=== PATIENT | female | born 1980 | race Caucasian/White ===

== ENCOUNTER 2017-09-07 08:51 | Emergency (ER) | payer OTHER ==
--- NOTE | 2017-09-07 09:19 | ER ---
Nurse's Notes [facility] Name: Yoli Duffy Age: 37 yrs Sex: Female : 1980 Arrival Date: 09/07/2017 Time: 08:54 Bed 21 Private MD: Rigo Allison R Diagnosis: Acute pharyngitis Presentation: 09/07 09:09 Presenting complaint: Patient states: pain to L ear and L tonsil that began this ss morning. Denies fever. Transition of care: patient was not received from another setting of care. Onset of symptoms was September 07, 2017. Initial Sepsis Screen: Does the patient meet any 2 criteria? No. Patient's initial sepsis screen is negative. Does the patient have a suspected source of infection? No. Patient's initial sepsis screen is negative. Care prior to arrival: None. 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 - Social history:: Smoking status: Patient/guardian denies using tobacco. Screenin:00 Abuse screen: Denies threats or abuse. Nutritional screening: No deficits noted. rb1 Tuberculosis screening: No symptoms or risk factors identified. Fall Risk None identified. Assessment: 09:00 General: Appears uncomfortable, Behavior is calm, cooperative. General: Denies fever. rb1 Pain: Complains of pain in throat and left ear Pain currently is 5 out of 10 on a pain scale. Pain began this morning. Neuro: Level of Consciousness is awake, alert, obeys commands, Oriented to person, place, time, situation. Cardiovascular: Capillary refill < 3 seconds is brisk in bilateral fingers. Respiratory: Airway is patent Respiratory effort is even, unlabored, Respiratory pattern is regular, symmetrical. GI: No signs and/or symptoms were reported involving the gastrointestinal system. : No signs and/or symptoms were reported regarding the genitourinary system. EENT: Throat is reddened. Derm: Skin is pink, warm \T\ dry. Vital Signs: 09:10 BP 110 / 72; Pulse 78; Resp 14; Temp 98.1(TE); Pulse Ox 98% on R/A; Height 5 ft. 3 in. ss (160.02 cm); Pain 5/10; ED Course: 08:54 Patient arrived in ED. as 08:55 Rigo Allison MD is Private Physician. as 09:00 Niki Aguilar, RN is Primary Nurse. rb1 09:00 Luis Palmer MD is Attending Physician. [facility] 09:00 Patient has correct armband on for positive identification. Bed in low position. Call rb1 light in reach. Side rails up X 1. Pulse ox on. NIBP on. 09:00 Arm band placed on right wrist. rb1 09: Triage completed. 09:19 Rigo Allison MD is Referral Physician. [facility] 09:27 No provider procedures requiring assistance completed. Patient did not have IV access rb1 during this emergency room visit. Administered Medications: No medications were administered Outcome: :19 Discharge ordered by . [facility] :27 Discharged to home ambulatory. rb1 09:27 Condition: stable 09:27 Discharge instructions given to patient, Instructed on discharge instructions, follow up and referral plans. medication usage, Demonstrated understanding of instructions, follow-up care, medications, Prescriptions given X 2. 09:28 Patient left the ED. rb1 Signatures: Luis Palmer MD MD cha Martinez, Amelia as Smirch, Shelby, RN RN Niki Aguilar, TOSHA RN [facility]
--- NOTE | 2017-09-07 09:19 | EDPHYS ---
Physician Documentation [facility] Name: Yoli Duffy Age: 37 yrs Sex: Female : 1980 Arrival Date: 09/07/2017 Time: 08:54 Bed 21 Private MD: Rigo Allison R ED Physician Luis Palmer HPI: 09/07 09:15 This 37 yrs old Female presents to ER via Ambulatory with complaints of paloma Swollen Glands, Ear Pain. 09:15 This 37 yrs old Female presents to ER via Ambulatory with complaints of paloma Swollen Glands, Ear Pain. 09:15 The patient presents with pain. 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 - Social history:: Smoking status: Patient/guardian denies using tobacco. ROS: 09:16 Constitutional: Negative for fever, chills, and weight loss, Eyes: Negative for injury, paloma pain, redness, and discharge, Neck: Negative for injury, pain, and swelling, Cardiovascular: Negative for chest pain, palpitations, and edema, Respiratory: Negative for shortness of breath, cough, wheezing, and pleuritic chest pain, Abdomen/GI: Negative for abdominal pain, nausea, vomiting, diarrhea, and constipation, Back: Negative for injury and pain, : Negative for injury, bleeding, discharge, and swelling, MS/Extremity: Negative for injury and deformity, Skin: Negative for injury, rash, and discoloration, Neuro: Negative for headache, weakness, numbness, tingling, and seizure, Psych: Negative for depression, anxiety, suicide ideation, homicidal ideation, and hallucinations, Allergy/Immunology: Negative for hives, rash, and allergies, Endocrine: Negative for neck swelling, polydipsia, polyuria, polyphagia, and marked weight changes, Hematologic/Lymphatic: Negative for swollen nodes, abnormal bleeding, and unusual bruising. 09:16 ENT: Positive for difficulty swallowing, ear pain, rhinorrhea, sore throat. Exam: 09:16 Constitutional: This is a well developed, well nourished patient who is awake, alert, paloma and in no acute distress. Head/Face: Normocephalic, atraumatic. Eyes: Pupils equal round and reactive to light, extra-ocular motions intact. Lids and lashes normal. Conjunctiva and sclera are non-icteric and not injected. Cornea within normal limits. Periorbital areas with no swelling, redness, or edema. Neck: Trachea midline, no thyromegaly or masses palpated, and no cervical lymphadenopathy. Supple, full range of motion without nuchal rigidity, or vertebral point tenderness. No Meningismus. Chest/axilla: Normal chest wall appearance and motion. Nontender with no deformity. No lesions are appreciated. Cardiovascular: Regular rate and rhythm with a normal S1 and S2. No gallops, murmurs, or rubs. Normal PMI, no JVD. No pulse deficits. Respiratory: Lungs have equal breath sounds bilaterally, clear to auscultation and percussion. No rales, rhonchi or wheezes noted. No increased work of breathing, no retractions or nasal flaring. Abdomen/GI: Soft, non-tender, with normal bowel sounds. No distension or tympany. No guarding or rebound. No evidence of tenderness throughout. Back: No spinal tenderness. No costovertebral tenderness. Full range of motion. Skin: Warm, dry with normal turgor. Normal color with no rashes, no lesions, and no evidence of cellulitis. MS/ Extremity: Pulses equal, no cyanosis. Neurovascular intact. Full, normal range of motion. Neuro: Awake and alert, GCS 15, oriented to person, place, time, and situation. Cranial nerves II-XII grossly intact. Motor strength 5/5 in all extremities. Sensory grossly intact. Cerebellar exam normal. Normal gait. 09:16 ENT: Posterior pharynx: Tonsils: with erythema, Uvula: normal, swelling, is not appreciated, erythema, that is mild, exudate, is not appreciated, peritonsillar mass, is not appreciated. Vital Signs: 09:10 BP 110 / 72; Pulse 78; Resp 14; Temp 98.1(TE); Pulse Ox 98% on R/A; Height 5 ft. 3 in. ss (160.02 cm); Pain 5/10; MDM: 09:00 Patient medically screened. [facility] 09:18 Data reviewed: vital signs, nurses notes. [facility] Administered Medications: No medications were administered Disposition: 09/07/17 09:19 Discharged to Home. Impression: Acute pharyngitis. - Condition is Stable. - Discharge Instructions: Pharyngitis, Pharyngitis, [id number], Sore Throat, [id number]. - Prescriptions for Augmentin 875- 125 mg Oral Tablet - take 1 tablet by ORAL route every 12 hours for 10 days; 20 tablet. Stephanie- D 12 Hour 60-120 mg Oral Tablet Sustained Release 12 hr - take 1 tablet by ORAL route every 12 hours As needed; 20 tablet. - Medication Reconciliation Form, Thank You Letter, Antibiotic Education, Prescription Opioid Use form. - Follow up: Rigo Allison MD; When: 2 - 3 days; Reason: Recheck today's complaints, Continuance of care, Re-evaluation by your physician. - Problem is new. - Symptoms have improved. Signatures: Luis Palmer MD MD cha Smirch, Shelby, RN RN Niki Aguilar, RN RN rb1
[2017-09-07 09:33] VITALS: BP 110/72; TEMP 98.1; O2SAT 98
== END 2017-09-07 09:28 | disposition home or self-care (01) ==
LOC: ER 08:51
DX: J02.9 Acute pharyngitis, unspecified (principal)
CPT/HCPCS: 99283

== ENCOUNTER 2017-09-08 11:47 | Emergency (ER) | payer SELFPAY ==
--- NOTE | 2017-09-08 12:23 | ER ---
Nurse's Notes [facility] Name: Yoli Duffy Age: 37 yrs Sex: Female : 1980 Arrival Date: 09/08/2017 Time: 11:51 Bed Waiting Private MD: Rigo Allison R Diagnosis: Presentation: 09/08 11:57 Presenting complaint: Patient states: having pain under ribs radiating to back, started iw 20 minutes ago, denies n/v/d, has had similar pain in past, dx of pleurisy, rates pain 6/10, intermittent. 11:57 Transition of care: patient was not received from another setting of care. Onset of iw symptoms was September 08, 2017. Initial Sepsis Screen: Does the patient meet any 2 criteria? No. Patient's initial sepsis screen is negative. Does the patient have a suspected source of infection? No. Patient's initial sepsis screen is negative. Care prior to arrival: None. 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 - Social history:: Smoking status: Patient/guardian denies using tobacco. Assessment: 12:19 Reassessment: pt not in lobby when called to room. iw Vital Signs: 11:59 BP 114 / 86; Pulse 98; Resp 18 S; Temp 98.4; Pulse Ox 99% on R/A; Weight 66.22 kg; iw Height 5 ft. 3 in. (160.02 cm); Pain 6/10; 11:59 Body Mass Index 25.86 (66.22 kg, 160.02 cm) iw ED Course: 11:51 Patient arrived in ED. mr 11:51 Rigo Allison MD is Private Physician. mr 11:59 Triage completed. iw 11:59 Arm band placed on. iw 12:17 Tara Edwards, RN is Primary Nurse. ph Administered Medications: No medications were administered Outcome: 12:23 Patient left the ED. pt Signatures: Gretchen Garza RN RN pt Chante English mr Dianelys Aburto RN RN iw Tara Edwards RN RN ph Corrections: (The following items were deleted from the chart) 11:59 11:57 Presenting complaint: Patient states: having pain under ribs radiating to back, iw started 20 minutes ago, iw
[2017-09-08 12:56] VITALS: BP 114/86; TEMP 98.4; O2SAT 99
== END 2017-09-08 12:23 | disposition left against medical advice (07) ==
LOC: ER 11:47
DX: Z02.9 Encounter for administrative examinations, unspecified (principal)
CPT/HCPCS: 99281

== ENCOUNTER 2018-05-21 11:55 | Emergency (ER) | payer SELFPAY ==
[2018-05-21] MEDS ORDERED: ONDANSETRON 4 MG/2 ML VIAL ONE (12:33)
--- OUTSIDE RECORDS SUMMARY | 2018-05-21 12:41 | XMS REPORT | Continuity of Care Document ---
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 thoracic spine to the pelvis. Compression fracture through the superior endplate of L1 with 1.3 mm anterior displacement of the fracture fragment and less than 10% vertebral body height loss. No acute soft tissue abnormality is identified. IMPRESSION: Compression fracture through the superior endplate of L1, mildly displaced anteriorly with less than 10% vertebral body height loss. (AO spine classification L1:A1). ELECTROLYTE CO2 22 meq/L 24 - 32 09/02 S /2016 [place] ELECTROLYTE Chloride Lvl 107 meq/L 95 - 109 09/02 S [place] ELECTROLYTE eGFR See Note 1 09/02 Result Comment: Tests performed on i- stat on whole blood. 09/02/2016 01:42 cg [place] (09/02/16 1:24 AM) ELECTROLYTE AGAP 20.0 meq/L 10.0 - 09/02 S 20.0 [place] ELECTROLYTE Ca Ion WB 1.25 1.05 - 09/02 S mMol/L 1.25 [place] ELECTROLYTE Hct see CBC 36.0 - 09/02 S 48.0 [place] ELECTROLYTE Hgb see CBC 12.0 - 09/02 S 16.0 [place] ELECTROLYTE Creatinine 0.9 mg/dL 0.5 - 1.4 09/02 S Lv [place] ELECTROLYTE BUN 10 mg/dL 7 - 22 09/02 S /2016 [place] ELECTROLYTE Sodium Lvl 144 meq/L 135 - 145 09/02 S [place] ELECTROLYTE Glucose Lvl 101 mg/dL 70 - 99 09/02 S [place] ELECTROLYTE Potassium 3.6 meq/L 3.5 - 5.1 09/02 S Lvl [place] HEMATOLOGY Basophils # 0.1 K/CMM 0.0 - 0.2 09/02 /2016 [place] HEMATOLOGY Lymphocytes 40.3 % 20.0 - 09/02 MH 40.0 [place] HEMATOLOGY Lymphocytes 3.0 K/CMM 1.0 - 5.5 09/02 MH # /2016 [place] HEMATOLOGY Segs 49.7 % 45.0 - 09/02 MH 75.0 [place] HEMATOLOGY Eosinophils 2.1 % 0.0 - 4.0 09/02 [place] HEMATOLOGY Segs-Bands # 3.7 K/CMM 1.5 - 8.1 09/02 [place] HEMATOLOGY Basophils 0.7 % 0.0 - 1.0 09/02 [place] HEMATOLOGY Eosinophils 0.2 K/CMM 0.0 - 0.5 09/02 MH /2016 [place] HEMATOLOGY Monocytes # 0.5 K/CMM 0.0 - 0.8 09/02 [place] HEMATOLOGY Monocytes 7.2 % 2.0 - 12.0 09/02 [place] HEMATOLOGY RBC X 10x6 3.94 M/CMM 4.20 - 09/02 MH 5.40 [place] HEMATOLOGY MCV 94.7 fL 80.0 - 09/02 MH 98.0 [place] HEMATOLOGY Hgb 13.3 g/dL 12.0 - 09/02 MH 16.0 [place] HEMATOLOGY Hct 37.3 % 36.0 - 09/02 MH 48.0 [place] HEMATOLOGY MPV 8.2 fL 7.4 - 10.4 09/02 [place] HEMATOLOGY Platelet 195 K/CMM 133 - 450 09/02 [place] HEMATOLOGY MCH 33.7 pg 27.0 - 09/02 MH 31.0 [place] HEMATOLOGY MCHC 35.5 g/dL 32.0 - 09/02 MH 36.0 [place] HEMATOLOGY RDW 12.6 % 11.5 - 09/02 MH 14. [place] HEMATOLOGY WBC X 10x3 7.4 K/CMM 3.7 - 10.4 09/02 [place] DRUG SCREEN U Phencyc Negative Negative 09/02 [place] *NA* (09/02/16 12:37 AM) DRUG SCREEN UDS Note See Note 09/02 [place] (09/02/16 12:37 AM) DRUG SCREEN U Opiate Scr Negative Negative 09/02 [place] *NA* (09/02/16 12:37 AM) DRUG SCREEN U Amph Scr Positive Negative 09/02 [place] *ABN* (09/02/16 12:37 AM) DRUG SCREEN U Mignon Scr Negative Negative 09/02 [place] *NA* (09/02/16 12:37 AM) DRUG SCREEN U Benzodia Negative Negative 09/02 Scr [place] *NA* (09/02/16 12:37 AM) DRUG SCREEN U Cocaine Negative Negative 09/02 Scr [place] *NA* (09/02/16 12:37 AM) DRUG SCREEN U Cannab Scr Negative Negative 09/02 [place] *NA* (09/02/16 12:37 AM) URINE AND UA WBC 6-10 /HPF None Seen 09/02 STOOL /HPF [place] URINE AND UA Sq Epi Moderate Few /LPF 09/02 STOOL /LPF [place] URINE AND UA Bacteria Moderate None Seen 09/02 STOOL /HPF /HPF [place] URINE AND UA Mucus Moderate None Seen 09/02 STOOL /LPF /LPF [place] URINE AND UA RBC 3-5 /HPF 0 - 2 09/02 [place] URINE AND UA CaOx Stella Few /HPF None Seen 09/02 STOOL /HPF [place] URINE AND UA Leuk Est Small Negative 09/02 [place] *ABN* (09/02/16 12:37 AM) URINE AND UA Nitrite Negative Negative 09/02 STOOL [place] (09/02/16 12:37 AM) URINE AND UA 0.2 EU/dL 0.1 - 1.0 09/02 [facility] Urobilinogen [place] URINE AND UA Glucose Negative Negative 09/02 STOOL [place] (09/02/16 12:37 AM) URINE AND UA Protein 30 mg/dL Negative 09/02 [facility] mg/dL [place] URINE AND UA pH 6.0 5.0 - 8.0 09/02 [place] URINE AND UA Spec Grav 1.025 <=1.030 09/02 STOOL [place] URINE AND UA Ketones 15 mg/dL Negative 09/02 STOOL mg/dL [place] URINE AND UA Blood Trace Negative 09/02 [place] *ABN* (09/02/16 12:37 AM) URINE AND UA Bili Negative Negative 09/02 [place] *NA* (09/02/16 12:37 AM) URINE AND UA Color Yellow Yellow 09/02 [place] *NA* (09/02/16 12:37 AM) URINE AND UA Turbidity Slight Cloudy Clear 09/02 STOOL [place] (09/02/16 12:37 AM) URINE CHEM U Preg Negative Negative 09/02 [place] (09/02/16 12:37 AM) Brain wo Brain wo Addendum: As per protocol, the study was over read. I agree with the initial assessment. 09/02 - [facility] contrast CT contrast CT /2016 - [place] Clinical Indication: Headache with Dizziness and Giddiness - right-sided headache and involuntary muscle activity/DLP: 932.54mGy-cm Read by: Angel Ulloa MD Dictated Date/time: 09/02/16 01:06 Comparison: None Electronically Signed by: Angel lUloa MD 09/02/16 01:07 FINAL REPORT - - TECHNIQUE: CT images were obtained from the foramen magnum to the vertex without the use of intravenous contrast on a multidetector CT. Coronal and sagittal reconstructions were obtained. Read by: George Souza DO Dictated Date/time: 09/02/16 00:54 CT radiation dose DLP: 932.54 mGy-cm Electronically Signed by: George Souza DO 09/02/16 01:05 FINAL REPORT FINDINGS: BRAIN PARENCHYMA: 10 x 6 mm extra-axial calcified lesion best seen on coronal image 25 most likely a calcified meningioma There are otherwise normal de leon-white interfaces, sulci and gyri. There ar e no focal mass lesions on this noncontrast head CT. There is no mass effect, midline shift or edema. There are no intra-axial or extra-axial fluid collections, intraventricular or intraparenchymal hemo rrhage. The pineal, sellar, brainstem, cerebellum and skull base regions appear unremarkable. VENTRICLES: The lateral ventricles, third and fourth ventricles appear unremarkable. The basilar cisterns are normal. ORBITS, MASTOIDS AND PARANASAL SINUSES: The visualized orbits and paranasal sinuses are otherwise unremarkable. The mastoid air cells are unopacified. SKULL: There are no osseous abnormalities. If there is further concern for intracranial pathology or acute stroke, MRI of the brain may be performed for complete assessment. IMPRESSION: 1. 10 x 6 mm extra-axial calcified lesion best seen on coronal image 25 and sagittal image 37 where it measures 21 x 7 mm most likely a calcified meningioma. Otherwise unremarkable noncontrast head CT with no CT evidence of a mass, hemorrhage, or subacute stroke. SL: SROSENBLUM-PC Vital Signs Vital Sign Value Date Comments Source Heart Rate 78 06/02/2017 [facility] Systolic (mm Hg) 108 06/02/2017 [facility] Diastolic (mm Hg) 61 06/02/2017 [facility] Systolic (mm Hg) 105 06/02/2017 [facility] Diastolic (mm Hg) 64 06/02/2017 [facility] Heart Rate 80 06/02/2017 [facility] Systolic (mm Hg) 99 06/02/2017 [facility] Diastolic (mm Hg) 58 06/02/2017 [facility] Temperature Oral (F) 98.6 F 06/02/2017 [facility] Heart Rate 76 06/02/2017 [facility] Temperature Oral (F) 98.6 F 06/02/2017 [facility] Respitory Rate 18 06/02/2017 [facility] Temperature Oral (F) 97.7 F 06/02/2017 [facility] Respitory Rate 17 06/02/2017 [facility] Respitory Rate 18 06/02/2017 [facility] BMI Calculated 26.59 06/01/2017 [facility] Weight 68.1 06/01/2017 [facility] Height 160.02 cm 06/01/2017 [facility] Systolic (mm Hg) 102 09/02/2016 [facility] Diastolic (mm Hg) 78 09/02/2016 [facility] Heart Rate 86 09/02/2016 [facility] Respitory Rate 18 09/02/2016 [facility] BMI Calculated 25.74 09/02/2016 [facility] Weight 65.909 09/02/2016 [facility] Height 160.02 cm 09/02/2016 [facility] Heart Rate 85 09/02/2016 [facility] Respitory Rate 16 09/02/2016 [facility] Systolic (mm Hg) 97 09/02/2016 [facility] Diastolic (mm Hg) 63 09/02/2016 [facility] Temperature Oral (F) 98.1 F 09/02/2016 [facility] Encounters Location Location Encounter Encounter Reason Attending ADM DC Status Source Details Type Number For Provider Date Date Visit [facility] [id number] Ricco 09/02 09/02 Jesse 0 Rosanne /2016 [facility] [id number] Clement 06/01 06/02 Reena Molina 3 Demetri /2017 [facility] Outpatient [id number] BHARGAV 06/[address] [facility] 0 Jesse Outpatient [id number] [facility] 07/24 [facility] 1 Jesse MNA Phone [phone] 09/05 09/07 [facility] Neuro y [facility] Outpatient [id number] [facility] 09/18 [facility] 2 Jesse Procedures Procedure Code Date Perfomer Comments Source Fallopian tube [id number] [facility] Fallopian tube [id number] [facility]
--- OUTSIDE RECORDS SUMMARY | 2018-05-21 12:41 | XMS REPORT | Summary of Care ---
:1980 Author Organization [facility] Address [id number] [place] [id number]- Encounter [facility] Min(FIN) [id number] Date(s): 09/01/16 - 09/02/[address] [phone] Discharge Diagnosis: Benign meningioma Discharge Diagnosis: Dizziness Discharge Disposition: Home or Self Care Attending Physician: Ricco Ahston MD Vital Signs Most recent to oldest [Reference Range]: 1 2 Height 160.02 cm (09/01/16 10:33 PM) Temperature Oral [96.4-99.1 DegF] 98.1 DegF (09/01/16 10:33 PM) Blood Pressure [90-140/60-90 mmHg] 102/78 mmHg 97/63 mmHg (09/02/16 2:52 AM) (09/01/16 10:33 PM) Respiratory Rate [14-20 BRMIN] 18 BRMIN 16 BRMIN (09/02/16 2:52 AM) (09/01/16 10:33 PM) Peripheral Pulse Rate [60-100 bpm] 86 bpm 85 bpm (09/02/16 2:52 AM) (09/01/16 10:33 PM) Weight 65.909 kg (09/01/16 10:33 PM) Body Mass Index 25.74 m2 (09/01/16 10:33 PM) Problem List No data available for this section Allergies, Adverse Reactions, Alerts Substance Reaction Severity Status sulfa drugs Active Medications Antivert 25 mg, 2 tab, Route: PO, Drug form: TAB, ONCE, Dosing Weight 65.909, kg, Priority: STAT, Start date:09/02/16 0:48:00 CDT, Stop date: 09/02/16 0:48:00 CDT Notes: (Same as: Antivert) Start Date: 09/02/16 Stop Date: 09/02/16 Status: Completedcyclobenzaprine 10 mg, 1 tab, Route: PO, Drug form: TAB, ONCE, Dosing Weight 65.909, kg, Priority: STAT, Start date:09/02/16 0:07:00 CDT, Stop date: 09/02/16 0:07:00 CDT Notes: (Same As: Flexeril) Start Date: 09/02/16 Stop Date: 09/02/16 Status: Completedmeclizine 25 mg, 1 tab, Route: PO, Drug form: TAB, ONCE, Dosing Weight 65.909, kg, Priority: STAT, Start date:09/02/16 0:08:00 CDT, Stop date: 09/02/16 0:08:00 CDT Notes: (Same as: Antivert) Start Date: 09/02/16 Stop Date: 09/02/16 Status: Completedmeclizine 25 mg oral tablet 25 mg=1 tab, PO, TID, PRN dizziness, X 10 day, # 30 tab, 0 Refill(s) Start Date: 09/02/16 Stop Date: 09/12/16 Status: Ordered Results ELECTROLYTES Most recent to oldest [Reference Range]: 1 Sodium Lvl [135-145 mEq/L] 144 mEq/L (09/02/16 1:24 AM) Potassium Lvl [3.5-5.1 mEq/L] 3.6 mEq/L (09/02/16 1:24 AM) Chloride Lvl [95-109 mEq/L] 107 mEq/L (09/02/16 1:24 AM) CO2 [24-32 mEq/L] 22 mEq/L *LOW* (09/02/16 1:24 AM) AGAP [10.0-20.0 mEq/L] 20.0 mEq/L (09/02/16 1:24 AM) CHEM PANEL Most recent to oldest [Reference Range]: 1 Creatinine Lvl [0.5-1.4 mg/dL] 0.9 mg/dL (09/02/16 1:24 AM) eGFR See Note 1 (09/02/16 1:24 AM) BUN [7-22 mg/dL] 10 mg/dL (09/02/16 1:24 AM) Glucose Lvl [70-99 mg/dL] 101 mg/dL *HI* (09/02/16 1:24 AM) 1Result Comment: Tests performed on i-stat on whole blood. 09/02/2016 01:42 cgPARATHYROID PROFILE Most recent to oldest [Reference Range]: 1 Ca Ion WB [1.05-1.25 mMol/L] 1.25 mMol/L (09/02/16 1:24 AM) DRUG SCREEN Most recent to oldest [Reference Range]: 1 U Amph Scr [Negative] Positive *ABN* (09/02/16 12:37 AM) U Mignon Scr [Negative] Negative *NA* (09/02/16 12:37 AM) U Benzodia Scr [Negative] Negative *NA* (09/02/16 12:37 AM) U Cocaine Scr [Negative] Negative *NA* (09/02/16 12:37 AM) U Opiate Scr [Negative] Negative *NA* (09/02/16 12:37 AM) U Phencyc Scr [Negative] Negative *NA* (09/02/16 12:37 AM) U Cannab Scr [Negative] Negative *NA* (09/02/16 12:37 AM) UDS Note See Note (09/02/16 12:37 AM) URINE CHEM Most recent to oldest [Reference Range]: 1 U Preg [Negative] Negative (09/02/16 12:37 AM) URINE AND STOOL Most recent to oldest [Reference Range]: 1 UA Turbidity [Clear] Slight Cloudy (09/02/16 12:37 AM) UA Color [Yellow] Yellow *NA* (09/02/16 12:37 AM) UA pH [5.0-8.0] 6.0 (09/02/16 12:37 AM) UA Spec Grav [<=1.030] 1.025 (09/02/16 12:37 AM) UA Glucose [Negative] Negative (09/02/16 12:37 AM) UA Blood [Negative] Trace *ABN* (09/02/16 12:37 AM) UA Ketones [Negative mg/dL] 15 mg/dL *ABN* (09/02/16 12:37 AM) UA Protein [Negative mg/dL] 30 mg/dL *ABN* (09/02/16 12:37 AM) UA Urobilinogen [0.1-1.0 EU/dL] 0.2 EU/dL (09/02/16 12:37 AM) UA Bili [Negative] Negative *NA* (09/02/16 12:37 AM) UA Leuk Est [Negative] Small *ABN* (09/02/16 12:37 AM) UA Nitrite [Negative] Negative (09/02/16 12:37 AM) UA WBC [None Seen /HPF] 6-10 /HPF *ABN* (09/02/16 12:37 AM) UA RBC [0-2 /HPF] 3-5 /HPF *ABN* (09/02/16 12:37 AM) UA Bacteria [None Seen /HPF] Moderate /HPF (09/02/16 12:37 AM) UA Sq Epi [Few /LPF] Moderate /LPF *ABN* (09/02/16 12:37 AM) UA CaOx Stella [None Seen /HPF] Few /HPF (09/02/16 12:37 AM) UA Mucus [None Seen /LPF] Moderate /LPF *ABN* (09/02/16 12:37 AM) HEMATOLOGY Most recent to oldest [Reference Range]: 1 WBC [3.7-10.4 K/CMM] 7.4 K/CMM (09/02/16 12:57 AM) RBC [4.20-5.40 M/CMM] 3.94 M/CMM *LOW* (09/02/16 12:57 AM) Hgb [12.0-16.0] see CBC *NA* (09/02/16 1:24 AM) Hgb [12.0-16.0 g/dL] 13.3 g/dL (09/02/16 12:57 AM) Hct [36.0-48.0] see CBC *NA* (09/02/16 1:24 AM) Hct [36.0-48.0 %] 37.3 % (09/02/16 12:57 AM) MCV [80.0-98.0 fL] 94.7 fL (09/02/16 12:57 AM) MCH [27.0-31.0 pg] 33.7 pg *HI* (09/02/16 12:57 AM) MCHC [32.0-36.0 g/dL] 35.5 g/dL (09/02/16 12:57 AM) RDW [11.5-14.5 %] 12.6 % (09/02/16 12:57 AM) Platelet [133-450 K/CMM] 195 K/CMM (09/02/16 12:57 AM) MPV [7.4-10.4 fL] 8.2 fL (09/02/16 12:57 AM) Segs [45.0-75.0 %] 49.7 % (09/02/16 12:57 AM) Lymphocytes [20.0-40.0 %] 40.3 % *HI* (09/02/16 12:57 AM) Monocytes [2.0-12.0 %] 7.2 % (09/02/16 12:57 AM) Eosinophils [0.0-4.0 %] 2.1 % (09/02/16 12:57 AM) Basophils [0.0-1.0 %] 0.7 % (09/02/16 12:57 AM) Segs-Bands # [1.5-8.1 K/CMM] 3.7 K/CMM (09/02/16 12:57 AM) Lymphocytes # [1.0-5.5 K/CMM] 3.0 K/CMM (09/02/16 12:57 AM) Monocytes # [0.0-0.8 K/CMM] 0.5 K/CMM (09/02/16 12:57 AM) Eosinophils # [0.0-0.5 K/CMM] 0.2 K/CMM (09/02/16 12:57 AM) Basophils # [0.0-0.2 K/CMM] 0.1 K/CMM (09/02/16 12:57 AM) Immunizations No data available for this section Procedures No data available for this section Social History Social History Type Response Substance Abuse Use: None. Alcohol Never Smoking Status Never smoker; Exposure to Tobacco Smoke None; Cigarette Smoking Last 365 Days No; Reg Smoking Cessation Counseling No Assessment and Plan No data available for this section
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
--- OUTSIDE RECORDS SUMMARY | 2018-05-21 12:42 | XMS REPORT | Summary of Care ---
:1980 Author Organization [facility] Address [address] [place] [id number]- Encounter HQ Encntr_alibrittany(FIN) [id number] Date(s): 05/31/17 - 06/02/[address] Professional Services provided by [facility] [place] [address]- Discharge Disposition: Home or Self Care Attending [...] Weight 65.909, kg, Start date: 06/01/17 4:00:00 MACHINE MOLDER, Duration: 30 day, Stop date: 06/30/17 22:00: 00 MACHINE MOLDER Notes: Max acetaminophen 4000 mg/day (4 gm/day). (Same as: Tylenol Extra Strength) Start Date: 06/01/17 Stop Date: 06/02/17 Status: DiscontinuedBenadryl 10 mg, 0.2 mL, Route: IVP, Drug form: INJ, ONCE, Dosing Weight 68.1, kg, PRN Itching, Start date: 06/01/17 17:50:00 MACHINE MOLDER Notes: (Same as: Benadryl) Start Date: 06/01/17 Stop Date: 06/01/17 Status: Completedcelecoxib 200 mg, 1 cap, Route: PO, Drug form: CAP, [id number], Dosing Weight 68.1, kg, Start date: 06/01/17 11:00:00 MACHINE MOLDER, Duration: 30 day, Stop date: 06/30/17 23:00: 00 MACHINE MOLDER Notes: NSAID. Please check indication. Not for seizure. (Same As: CeleBREX) Start Date: 06/01/17 Stop Date: 06/02/17 Status: Discontinuedcelecoxib 200 mg oral capsule 200 mg=1 cap, PO, BID, # 28 cap, 0 Refill(s), Pharmacy: [facility]/pharmacy #[id number] Start Date: 06/02/17 Stop Date: 06/16/17 Status: Ordereddocusate 100 mg, 1 cap, Route: PO, Drug form: CAP, BID, Dosing Weight 65.909, kg, Start date: 06/01/17 9:00:00 MACHINE MOLDER, Duration: 30 day, Stop date: 06/30/17 17:00:00 MACHINE MOLDER Notes: (Same as: Colace) (Do Not Crush) Start Date: 06/01/17 Stop Date: 06/02/17 Status: Discontinueddocusate 100 mg, 1 cap, Route: PO, Drug form: CAP, BID, Dosing Weight 65.909, kg, Start date: 06/01/17 9:00:00 MACHINE MOLDER, Duration: 30 day, Stop date: 06/30/17 17:00:00 MACHINE MOLDER Notes: (Same as: Colace) (Do Not Crush) Start Date: 06/01/17 Stop Date: 06/01/17 Status: Discontinuedenoxaparin 30 mg, 0.3 mL, Route: SUB-Q, Drug form: INJ, [id number], Dosing Weight 65.909, kg , Start date: 06/01/17 4:00:00 MACHINE MOLDER, Duration: 30 day, Stop date: 06/30/17 16:00: 00 MACHINE MOLDER Notes: (Same as: Lovenox) Start Date: 06/01/17 Stop Date: 06/02/17 Status: Discontinuedgabapentin 300 mg, 3 cap, Route: PO, Drug form: CAP, Q8Hnow, Dosing Weight 65.909, kg, Start date: 06/01/17 4:00:00 MACHINE MOLDER, Duration: 30 day, Stop date: 06/30/17 20:00: 00 MACHINE MOLDER Notes: (Same as: Neurontin) Start Date: 06/01/17 Stop Date: 06/02/17 Status: Discontinuedgabapentin 300 mg oral capsule 300 mg=1 cap, PO, TID, # 42 cap, 0 Refill(s), Pharmacy: [facility]/pharmacy #[id number] Start Date: 06/02/17 Stop Date: 06/16/17 Status: OrderedImitrex 25 mg, 1 tab, Route: PO, Drug form: TAB, Q6H, PRN Other -See Comment, Start date : 06/01/17 15:57:00 MACHINE MOLDER, Duration: 30 day, Stop date: 07/01/17 15:56:00 MACHINE MOLDER Notes: (Same As: Imitrex) Start Date: 06/01/17 Stop Date: 06/02/17 Status: DiscontinuedImitrex Nasal 20 mg/inh spray 20 mg, Route: NASAL, Drug form: SPRY, Q2H, Dosing Weight 68.1, kg, PRN Headache 7-10, Start date: 06/01/17 14:45:00 MACHINE MOLDER, Duration: 30 day, Stop date: 07/01/17 14:44:00 MACHINE MOLDER Start Date: 06/01/17 Stop Date: 06/01/17 Status: DeletedLidoderm 5% topical film (patch) 1 patch, Route: TOP, Q24H, Drug form: FILM, Start date: 06/01/17 11:00:00 MACHINE MOLDER, Duration: 30 day, Stop date: 06/30/17 11:00:00 MACHINE MOLDER Notes: Apply only once for up to 12 hours in [id number] period (12 hours on and 12 hours off).(Same as: Lidoderm)"Remove old patch before application of new patch" Start Date: 06/01/17 Stop Date: 06/02/17 Status: Discontinuedmethocarbamol 1,000 mg, 2 tab, Route: PO, Drug form: TAB, Q8H, Dosing Weight 65.909, kg, PRN Muscle Spasms, Start date: 06/01/17 3:45:00 MACHINE MOLDER, Duration: 30 day, Stop date: 3:44:00 MACHINE MOLDER Notes: (Same as:Robaxin) Start Date: 06/01/17 Stop Date: 06/02/17 Status: Discontinuedmethocarbamol 750 mg, 1 tab, Route: PO, Drug form: TAB, Q6Hnow, Dosing Weight 68.1, kg, Start date: 06/01/17 11:00:00 MACHINE MOLDER, Duration: 30 day, Stop date: 07/01/17 9:00:00 MACHINE MOLDER Notes: (Same as:Robaxin) Start Date: 06/01/17 Stop Date: 06/02/17 Status: Discontinuedmethocarbamol 750 mg oral tablet 750 mg=1 tab, PO, Q8H, PRN Spasms, X 14 day, # 30 tab, 0 Refill(s), Pharmacy: [facility]/pharmacy #[id number] Start Date: 06/02/17 Stop Date: 06/16/17 Status: Orderedmorphine Sulfate 4 mg, Route: IVP, ONCE, Dosing Weight 65.909, kg, Start date: 06/01/17 2:38:00 MACHINE MOLDER, Stop date: 06/01/17 2:38:00 MACHINE MOLDER Start Date: 06/01/17 Stop Date: 06/01/17 Status: Completedmorphine Sulfate 4 mg, Route: IVP, ONCE, Dosing Weight 65.909, kg, Priority: STAT, Start date: 20:30:00 MACHINE MOLDER,Stop date: 05/31/17 20:30:00 MACHINE MOLDER Start Date: 05/31/17 Stop Date: 05/31/17 Status: Completedmorphine Sulfate 4 mg, 1 mL, Route: IVP, Drug form: SOLN, ONCE, Dosing Weight 65.909, kg, Priority: STAT, Start date:05/31/17 21:54:00 MACHINE MOLDER, Stop date: 05/31/17 21:54:00 MACHINE MOLDER Notes: (Same as:MORPhine Sulfate) Start Date: 05/31/17 Stop Date: 05/31/17 Status: CompletedNorco 5/325 oral tablet 1 tab, Route: PO, Drug Form: TAB, Dosing Weight 65.909, kg, ONCE, STAT, Start date: 05/31/17 22:49:00 MACHINE MOLDER, Stop date: 05/31/17 22:49:00 MACHINE MOLDER Notes: (Same as: Leon 325/5) Do not exceed 4gm/day of acetaminophen. Start Date: 05/31/17 Stop Date: 05/31/17 Status: CompletedNS (Bolus) IV 1,000 mL, 1,000 ml/hr, Infuse Over: 1 hr, Route: IV, ONCE, Priority: STAT, Dosing Weight 65.909 kg, Start date: 06/01/17 3:49:00 MACHINE MOLDER, Stop date: 06/01/17 3 :49:00 MACHINE MOLDER Start Date: 06/01/17 Stop Date: 06/01/17 Status: Completedondansetron 4 mg, 2 mL, Route: IVP, Drug form: INJ, Q6H, Dosing Weight 65.909, kg, PRN Nausea & Vomiting, Start date: 06/01/17 3:43:00 MACHINE MOLDER, Duration: 30 day, Stop date: 07/01/17 3:42:00 MACHINE MOLDER Notes: (Same as: Zofran) MEDICATION WASTE Product [...] Pain Score 7-10, Start date: 06/01/17 3:45:00 MACHINE MOLDER, Duration: 30 day, Stop date: 07/01/17 3:44:00 MACHINE MOLDER Notes: (Same as: Roxicodone) Start Date: 06/01/17 Stop Date: 06/02/17 Status: DiscontinuedPhenergan + Sodium Chloride 0.9% IV 50 mL 12.5 mg, 0.5 mL, Route: IVPB, Q4H, Dosing Weight 68.1, kg, PRN Nausea & Vomiting, Start date: 06/02/17 9:57:00 MACHINE MOLDER, Duration: 30 day, Stop date: 9:56:00 MACHINE MOLDER Notes: Do not give IV push. (Same as: Phenergan) Start Date: 06/02/17 Stop Date: 06/02/17 Status: Discontinuedremove patch 1 patch, Route: TOP, Q24H, Drug form: ERFILM, Start date: 06/01/17 23:00:00 MACHINE MOLDER , Duration: 30 day, Stop date: 06/30/17 23:00:00 MACHINE MOLDER Notes: Remove patch 12 hours after application each day. Start Date: 06/01/17 Stop Date: 06/02/17 Status: Discontinuedsenna 17.2 mg, 2 tab, Route: PO, Drug Form: TAB, Dosing Weight 68.1, kg, Bedtime, Start date: 06/01/17 21:00:00 MACHINE MOLDER, Duration: 30 day, Stop date: 06/30/17 21:00: 00 MACHINE MOLDER Notes: (Same as: Senokot) Start Date: 06/01/17 Stop Date: 06/02/17 Status: Discontinuedtramadol 100 mg, 2 tab, Route: PO, Drug form: TAB, Q6Hnow, Dosing Weight 65.909, kg, PRN Pain Score 4-6, Start date: 06/01/17 3:45:00 MACHINE MOLDER, Duration: 30 day, Stop date: 07/01/17 3:44:00 MACHINE MOLDER Notes: Not to exceed 400mg/day. (Same As: Ultram) Start Date: 06/01/17 Stop Date: 06/01/17 Status: Discontinuedtramadol 100 mg, 2 tab, Route: PO, Drug form: TAB, Q6H, Dosing Weight 68.1, kg, Start date: 06/01/17 12:00:00CST, Duration: 30 day, Stop date: 07/01/17 3:00:00 MACHINE MOLDER Notes: Not to exceed 400mg/day. (Same As: Ultram) Start Date: 06/01/17 Stop Date: 06/02/17 Status: DiscontinuedTylenol with Codeine #3 oral tablet 1 - 2 tab, PO, Q6H, PRN Pain, X 14 day, # 50 tab, 0 Refill(s) Start Date: 06/02/17 Stop Date: 06/16/17 Status: OrderedVanacof DM oral liquid GIVE 10 MILLILITERS BY MOUTH EVERY 6 HOURS NEEDED FOR COUGH/CONGESTION Start Date: 06/01/17 Stop Date: 06/02/17 Status: DiscontinuedZofran 4 mg, Route: IVP, Drug form: INJ, ONCE, Dosing Weight 65.909, kg, Priority: STAT , Start date: 05/31/17 20:30:00 MACHINE MOLDER, Stop date: 05/31/17 20:30:00 MACHINE MOLDER Start Date: 05/31/17 Stop Date: 05/31/17 Status: CompletedZofran 4 mg, 2 mL, Route: IVP, Drug form: INJ, ONCE, Dosing Weight 65.909, kg, Priority : STAT, Start date: 05/31/17 21:53:00 MACHINE MOLDER, Stop date: 05/31/17 21:53:00 MACHINE MOLDER Notes: (Same as: Zofran) MEDICATION WASTE Product [...] % (06/02/17 3:56 AM) (06/01/17 2:35 AM) Platelet [133-450 K/CMM] 111 K/CMM 169 K/CMM *LOW* (06/01/17 2:35 AM) (06/02/17 3:56 AM) MPV [7.4-10.4 fL] 8.5 fL 8.2 fL (06/02/17 3:56 AM) (06/01/17 2:35 AM) Segs [45.0-75.0 %] 48.9 % 57.4 [...] Reg Smoking Cessation Counseling No entered on: 06/01/17 Assessment and Plan Extracted from: Title: mhut [...] Plan for DC home tomorrow. Please page [phone] with any further questions. Extracted from: Title: History and Physical Author: Samia Garcia DO Date: 06/01/17 1.Acute pain Multimodal pain regimen TLSO brace for comfort 2.Closed compression fracture of L1 lumbar vertebra L1 compression fractures are seen on CT spine Follow up in [address] Daniel in clinic with repeat A/P and lateral plain films. Please call [phone] to schedule an appointment. Early ambulation Pending pain control
--- OUTSIDE RECORDS SUMMARY | 2018-05-21 12:42 | XMS REPORT ---
:1980 [facility] Address [address] [place] [address] Dr. Don[address] [place] [address] Care Team Providers Name Role Phone DR STEFANIE SPAULDING Unavailable Unavailable Problems This patient has no known problems. Allergies, Adverse Reactions, Alerts This patient has no known allergies or adverse reactions. Medications This patient has no known medications. Encounters Start End Encounter Admission Attending Care Care Encounter Date/Time Date/Time Type Type Clinicians Facility Department ID 2018-04-22 2018-04-22 Outpatient BLANCA SILVA [facility] [id number] 08:51:00 14:19:00 STEFANIE 2018-03-04 2018-03-04 Outpatient BLANCA SILVA [facility] [id number] 13:15:00 13:15:00 STEFANIE Results Test Description Test Time Test Comments Text Results Atomic Results Result Comments URINE MONOCLONAL *WW* 2018-04-22 09:31:00 Test Item Value Reference Range Comments PREG UR (test code=PGU) NEGATIVE NEGATIVE
--- OUTSIDE RECORDS SUMMARY | 2018-05-21 12:42 | XMS REPORT | Summary of Care ---
:1980 Author Organization [facility] Address [address] [place] [address], [address] [place] [address]- Encounter HQ Encntr_alias(FIN) [id number] Date(s): 09/05/17 - 09/06/17 [facility] [address] [place] [address], [address] [place], [place] [address] [phone] Vital Signs No data available for this section Problem List Condition Effective Dates Status Health Status Informant Dysautonomia(Confirmed) Resolved Ectopic (Confirmed) Resolved Allergies, Adverse Reactions, Alerts Substance Reaction Severity Status sulfa drugs Active Medications No data available for this section Results No data available for this section Immunizations No data available for this section [...] No entered on: 06/20/17 Assessment and Plan No data available for this section
[2018-05-21 13:08] LABS: Absolute Lymphocytes (CBC) 2.2 K/uL (0.7-4.9); Absolute Monocytes 0.3 K/uL (0.1-1.3); Absolute Neutrophil 3.1 K/uL (1.8-8.0); Basophils % 0.2 % (0-1.3); Eosinophils % 0.9 % (0-4.4); Hematocrit 39.8 % (36.0-45.0); Lymphocytes % 38.9 % (15.3-44.8); MPV 8.2 fL (7.6-11.3); Monocytes % 6.1 % (3.3-12.3); RBC Red Blood Cell Count 4.15 M/uL (3.86-4.86)
[2018-05-21 13:12] LABS: Albumin 3.6 g/dL (3.4-5.0); Bilirubin Direct 0.2 mg/dL (0-0.2); Bilirubin Total 0.8 mg/dL (0.2-1.0); Potassium 3.5 mmol/L (3.5-5.1)
--- NOTE | 2018-05-21 14:09 | RAD REPORT ---
EXAM DESCRIPTION: CT - Abdomen Pelvis W Contrast - 05/21/2018 1:34 pm CLINICAL HISTORY: Abdominal pain, cramping, nausea COMPARISON: CT study August 2013 TECHNIQUE: Biphasic, helical CT imaging of the abdomen and pelvis was performed following 100 ml non -ionic IV contrast. No oral contrast administered. All CT scans are performed using dose optimization technique as appropriate and may include automated exposure control or mA/KV adjustment according to patient size. FINDINGS: No suspicious findings in the lung bases. The liver, spleen, and pancreas show no suspicious findings. Cholecystectomy clips are present. No bi liary tree dilatation. Symmetric renal function is seen with no hydronephrosis or suspicious renal mass. No pyelonephritis o r acute parenchymal process. No bladder abnormalities. No adrenal abnormalities. No uterine abnormality identifiable. No suspicious right ovarian finding. Left ovary along the supero lateral margin of the fundus shows a 2.3 centimeter involuting cyst. There is an adjacent 1.[address] cyst. No dilated bowel loops or bowel wall thickening. Moderate stool volume seen throughout the colon. No acute colon process. No evidence for appendicitis. No free air, free fluid or inflammatory stranding. No hernia, mass or bulky lymphadenopathy. No suspicious bony findings. IMPRESSION: No obstruction, free air or surgically emergent finding. Partially involuted 2.3 centimeter left ovarian cyst. No other significant finding in the pelvis. Stool volume is moderate. GI tract is otherwise unremarkable.
--- NOTE | 2018-05-21 15:08 | ER ---
Nurse's Notes [facility] Name: Yoli Duffy Age: 38 yrs Sex: Female : 1980 Arrival Date: 05/21/2018 Time: 11:56 Bed 19 Private MD: Rigo Allison R Diagnosis: Abdominal and pelvic pain Presentation: 05/21 11:59 Presenting complaint: Patient states: abdominal cramping down low as well as epigastric ch for several days, worse last night with lots of nausea. I had a leap procedure about a month ago, and just started bleeding again today. Transition of care: patient was not received from another setting of care. Onset of symptoms was May 19, 2018. Risk Assessment: Do you want to hurt yourself or someone else? Patient reports no desire to harm self or others. Initial Sepsis Screen: Does the patient meet any 2 criteria? No. Patient's initial sepsis screen is negative. Does the patient have a suspected source of infection? No. Patient's initial sepsis screen is negative. Care prior to arrival: None. 11:59 Method Of Arrival: Ambulatory 11:59 Acuity: MARIA GUADALUPE 3 ch Triage Assessment: 12:02 General: Appears in no apparent distress. comfortable, Behavior is calm, cooperative, ch appropriate for age. Pain: Complains of pain in epigastric area, right lower quadrant and left lower quadrant. STITCH SEPARATOR: 12:02 LMP 05/21/2018 Historical: - Allergies: 12:02 Sulfa (Sulfonamide Antibiotics); ch - Home Meds: 12:02 Doxycycline Oral [Active]; ch - PMHx: 12:02 Anxiety; ch - PSHx: 12:02 Cholecystectomy; Ectopic x 2; leap; raul fallopian tubes removed; ch - Immunization history:: Adult Immunizations up to date, Flu vaccine is up to date. - Social history:: Smoking status: Patient/guardian denies using tobacco, Patient/guardian denies using alcohol, street drugs. - Ebola Screening: : Patient negative for fever greater than or equal to 101.5 degrees Fahrenheit, and additional compatible Ebola Virus Disease symptoms Patient denies exposure to infectious person Patient denies travel to an Ebola-affected area in the 21 days before illness onset No symptoms or risks identified at this time. Screenin:40 Abuse screen: Denies threats or abuse. Denies injuries from another. Nutritional aj screening: No deficits noted. Tuberculosis screening: No symptoms or risk factors identified. Fall Risk None identified. Assessment: 12:40 General: Appears in no apparent distress. comfortable, Behavior is calm, cooperative, aj appropriate for age. Pain: Complains of pain in left lower quadrant and right lower quadrant. Neuro: Level of Consciousness is awake, alert, obeys commands, Oriented to person, place, time, situation, Appropriate for age. Respiratory: Airway is patent Respiratory effort is even, unlabored, Respiratory pattern is regular, symmetrical. GI: Abdomen is flat, non-distended, Bowel sounds present X 4 quads. Abd is soft X 4 quads Abdomen is tender to palpation X 4 quads. GI: Reports nausea. Derm: Skin is intact, is healthy with good turgor, Skin is pink, warm \T\ dry. normal. 15:38 Reassessment: Patient appears in no apparent distress at this time. No changes from aj previously documented assessment. Patient and/or family updated on plan of care and expected duration. Pain level reassessed. Patient is alert, oriented x 3, equal unlabored respirations, skin warm/dry/pink. 16:10 Reassessment: Patient reports increase in pain in epigastrium. Physician notified. aj 16:29 Reassessment: Physician spoke with patient, no new orders. aj 17:17 Reassessment: Patient appears in no apparent distress at this time. No changes from aj previously documented assessment. Patient and/or family updated on plan of care and expected duration. Pain level reassessed. Patient is alert, oriented x 3, equal unlabored respirations, skin warm/dry/pink. Patient states feeling better. Patient states symptoms have improved. Vital Signs: 12:02 BP 105 / 86; Pulse 85; Resp 16; Temp 98.6; Pulse Ox 99% on R/A; Weight 68.04 kg; Height ch 5 ft. 3 in. (160.02 cm); Pain 6/10; 13:15 BP 105 / 70; Pulse 83; Resp 20; Pulse Ox 100% ; hs1 14:29 BP 95 / 60; Pulse 78; Resp 16; Temp 99.9; Pulse Ox 100% ; hs1 15:20 BP 106 / 63; Pulse 83; Resp 22; Temp 100.2; Pulse Ox 99% ; hs1 17:02 BP 94 / 61; Pulse 70; Resp 18; Temp 99.1; Pulse Ox 100% ; hs1 17:17 BP 101 / 67; Pulse 72; Resp 18; Pulse Ox 99% on R/A; aj 12:02 Body Mass Index 26.57 (68.04 kg, 160.02 cm) ED Course: 11:56 Patient arrived in ED. sb2 11:57 Rigo Allison MD is Private Physician. sb2 12:00 Triage completed. ch 12:02 Arm band placed on left wrist. Patient placed in an exam room, on a stretcher. ch 12:18 Ashish Lawson MD is Attending Physician. kdr 12:20 Shiela Marcos RN is Primary Nurse. aj 12:40 Patient has correct armband on for positive identification. Bed in low position. Side aj rails up X 1. 12:40 Inserted saline lock: 22 gauge in right forearm, using aseptic technique. Blood aj collected. 13:34 CT completed. Patient tolerated procedure well. Patient moved to CT. Patient moved back nj from CT. 13:34 CT Abd/Pelvis - W/Contrast In Process Unspecified. EDMS 15:07 Rigo Allison MD is Referral Physician. kdr 17:19 No provider procedures requiring assistance completed. IV discontinued, intact, aj bleeding controlled, No redness/swelling at site. Pressure dressing applied. Administered Medications: 12:39 Drug: Zofran 4 mg Route: IVP; Site: right forearm; aj 16:38 Follow up: Response: Pain is increased aj 15:38 Drug: Pepcid 20 mg Route: IVP; Site: right forearm; aj 16:39 Follow up: Response: Pain is increased aj 15:38 Drug: GI Cocktail without - (Maalox Suspension 30 ml, Lidocaine Liquid 2 % 15 aj ml) Route: PO; 16:39 Follow up: Response: Pain is increased aj 15:38 Drug: morphine 4 mg Route: IVP; Site: right forearm; aj 16:39 Follow up: Response: Pain is increased aj 16:38 Drug: Bentyl 20 mg Route: PO; aj 17:20 Follow up: Response: Pain is decreased aj Outcome: 15:08 Discharge ordered by . kdr 17:19 Discharged to home ambulatory, with family. aj 17:19 Condition: good 17:19 Discharge instructions given to patient, family, Instructed on discharge instructions, follow up and referral plans. medication usage, Demonstrated understanding of instructions, follow-up care, medications, Prescriptions given X 4. 17:24 Patient left the ED. alex Signatures: Dispatcher [employer] EDAshley Davidson, RN Shiela Chavez ch, RN RN aj Rittger, Kevin, MD MD kdr Jordan, Nathan nj Billeau, Sheri 2 Caio Mendieta 1
--- NOTE | 2018-05-21 15:08 | EDPHYS ---
Physician Documentation [facility] Name: Yoli Duffy Age: 38 yrs Sex: Female : 1980 Arrival Date: 05/21/2018 Time: 11:56 Bed 19 Private MD: Rigo Allison R ED Physician Ashish Lawson HPI: 05/21 12:37 This 38 yrs old Female presents to ER via Ambulatory with complaints of kdr Abdominal Pain, Nausea. 12:37 The patient presents to the emergency department with nausea, that is mild, abdominal kdr pain, of the epigastric area and suprapubic area, described as burning, Onset: The symptoms/episode began/occurred last night. Possible causes: unknown, The patient had a Leep procedure. The symptoms are aggravated by pressure, food , The symptoms are alleviated by remaining still. Associated signs and symptoms: Pertinent positives: abdominal pain, nausea, Pertinent negatives: anorexia, constipation, diarrhea, dysuria, fever, GI bleeding, hematuria, vaginal discharge. Severity of symptoms: At their worst the symptoms were mild in the emergency department the symptoms are unchanged. The patient has not experienced similar symptoms in the past. The patient had a recently Leep procedure - about a month ago.. 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 - Social history:: Smoking status: Patient/guardian denies using tobacco, Patient/guardian denies using alcohol, street drugs. - Ebola Screening: : Patient negative for fever greater than or equal to 101.5 degrees Fahrenheit, and additional compatible Ebola Virus Disease symptoms Patient denies exposure to infectious person Patient denies travel to an Ebola-affected area in the 21 days before illness onset No symptoms or risks identified at this time. ROS: 12:37 Constitutional: Negative for fever, chills, and weight loss, Eyes: Negative for injury, kdr pain, redness, and discharge, ENT: Negative for injury, pain, and discharge, Neck: Negative for injury, pain, and swelling, Cardiovascular: Negative for chest pain, palpitations, and edema, Respiratory: Negative for shortness of breath, cough, wheezing, and pleuritic chest pain, Back: Negative for injury and pain, : Negative for injury, bleeding, discharge, and swelling, MS/Extremity: Negative for injury and deformity, Skin: Negative for injury, rash, and discoloration, Neuro: Negative for headache, weakness, numbness, tingling, and seizure activity. Psych: Negative for depression, anxiety, suicide ideation, homicidal ideation, and hallucinations, Allergy/Immunology: Negative for hives, rash, and allergies, Endocrine: Negative for neck swelling, polydipsia, polyuria, polyphagia, and marked weight changes, Hematologic/Lymphatic: Negative for swollen nodes, abnormal bleeding, and unusual bruising. 12:37 Abdomen/GI: Positive for abdominal pain, nausea, Negative for diarrhea, constipation, abdominal cramps, abdominal distension, anorexia, dysphagia, hematemesis, black/tarry stool, rectal pain, rectal bleeding, bowel incontinence. Exam: 12:37 Constitutional: This is a well developed, well nourished patient who is awake, alert, kdr and in no acute distress. Head/Face: Normocephalic, atraumatic. Eyes: Pupils equal round and reactive to light, extra-ocular motions intact. Lids and lashes normal. Conjunctiva and sclera are non-icteric and not injected. Cornea within normal limits. Periorbital areas with no swelling, redness, or edema. Neck: Trachea midline, no thyromegaly or masses palpated, and no cervical lymphadenopathy. Supple, full range of motion without nuchal rigidity, or vertebral point tenderness. No Meningismus. Chest/axilla: Normal chest wall appearance and motion. Nontender with no deformity. No lesions are appreciated. Cardiovascular: Regular rate and rhythm with a normal S1 and S2. No gallops, murmurs, or rubs. Normal PMI, no JVD. No pulse deficits. Respiratory: Lungs have equal breath sounds bilaterally, clear to auscultation and percussion. No rales, rhonchi or wheezes noted. No increased work of breathing, no retractions or nasal flaring. Back: No spinal tenderness. No costovertebral tenderness. Full range of motion. Skin: Warm, dry with normal turgor. Normal color with no rashes, no lesions, and no evidence of cellulitis. MS/ Extremity: Pulses equal, no cyanosis. Neurovascular intact. Full, normal range of motion. Neuro: Awake and alert, GCS 15, oriented to person, place, time, and situation. Cranial nerves II-XII grossly intact. Motor strength 5/5 in all extremities. Sensory grossly intact. Cerebellar exam normal. Normal gait. Psych: Awake, alert, with orientation to person, place and time. Behavior, mood, and affect are within normal limits. 12:37 Abdomen/GI: Inspection: abdomen appears normal, Bowel sounds: active, all quadrants, Palpation: soft, mild abdominal tenderness, in the epigastric area and suprapubic area, mass, is not appreciated, rebound tenderness, is not appreciated, voluntary guarding, is not appreciated, involuntary guarding, is not appreciated. Vital Signs: 12:02 BP 105 / 86; Pulse 85; Resp 16; Temp 98.6; Pulse Ox 99% on R/A; Weight 68.04 kg; Height ch 5 ft. 3 in. (160.02 cm); Pain 6/10; 13:15 BP 105 / 70; Pulse 83; Resp 20; Pulse Ox 100% ; hs1 14:29 BP 95 / 60; Pulse 78; Resp 16; Temp 99.9; Pulse Ox 100% ; hs1 15:20 BP 106 / 63; Pulse 83; Resp 22; Temp 100.2; Pulse Ox 99% ; hs1 17:02 BP 94 / 61; Pulse 70; Resp 18; Temp 99.1; Pulse Ox 100% ; hs1 17:17 BP 101 / 67; Pulse 72; Resp 18; Pulse Ox 99% on R/A; aj 12:02 Body Mass Index 26.57 (68.04 kg, 160.02 cm) ch MDM: 12:37 Data reviewed: vital signs, nurses notes, lab test result(s), radiologic studies. kdr Counseling: I had a detailed discussion with the patient and/or guardian regarding: the historical points, exam findings, and any diagnostic results supporting the discharge/admit diagnosis, lab results, radiology results. 15:08 Patient medically screened. kdr 05/21 12:19 Order name: Basic Metabolic Panel; Complete Time: 13:47 kdr 05/21 12:19 Order name: CBC with Diff; Complete Time: 13:47 kdr 05/21 12:19 Order name: Creatinine for Radiology; Complete Time: 13:47 kdr 05/21 12:19 Order name: Hepatic Function; Complete Time: 13:47 kdr 05/21 12:19 Order name: Lipase; Complete Time: 13:47 kdr 05/21 12:35 Order name: CT Abd/Pelvis - W/Contrast; Complete Time: 14:33 kdr 05/21 12:19 Order name: IV Saline Lock; Complete Time: 12:39 kdr 05/21 12:19 Order name: Labs collected and sent; Complete Time: 12:39 kdr Administered Medications: 12:39 Drug: Zofran 4 mg Route: IVP; Site: right forearm; aj 16:38 Follow up: Response: Pain is increased aj 15:38 Drug: Pepcid 20 mg Route: IVP; Site: right forearm; aj 16:39 Follow up: Response: Pain is increased aj 15:38 Drug: GI Cocktail without - (Maalox Suspension 30 ml, Lidocaine Liquid 2 % 15 aj ml) Route: PO; 16:39 Follow up: Response: Pain is increased aj 15:38 Drug: morphine 4 mg Route: IVP; Site: right forearm; aj 16:39 Follow up: Response: Pain is increased aj 16:38 Drug: Bentyl 20 mg Route: PO; aj 17:20 Follow up: Response: Pain is decreased aj Disposition: 05/21/18 15:08 Discharged to Home. Impression: Abdominal and pelvic pain. - Condition is Stable. - Discharge Instructions: Abdominal Pain, Adult, [id number]. - Prescriptions for Bentyl 20 mg Oral Tablet - take 1 tablet by ORAL route every 6 hours As needed; 20 tablet. Pepcid 20 mg Oral Tablet - take 1 tablet by ORAL route every 12 hours for 5 days; 10 tablet. Zofran 4 mg Oral Tablet - take 1 tablet by ORAL route every 12 hours As needed; 6 tablet. Tramadol 50 mg Oral Tablet - take 1 tablet by ORAL route every 8 hours as needed; 12 tablet. - Medication Reconciliation Form, Thank You Letter, Prescription Opioid Use form. - Follow up: Rigo Allison MD; When: 2 - 3 days; Reason: If symptoms return, Further diagnostic work-up, Recheck today's complaints, Continuance of care, Re-evaluation by your physician. - Problem is new. - Symptoms have improved. Signatures: Dispatcher [employer] EDAshley Davidson RN Shiela Chavez ch, RN RN aj Rittger, Kevin, MD MD kdr Corrections: (The following items were deleted from the chart) 17:24 15:08 05/21/2018 15:08 Discharged to Home. Impression: Abdominal and pelvic pain. aj Condition is Stable. Forms are Medication Reconciliation Form, Thank You Letter, Antibiotic Education, Prescription Opioid Use. Follow up: Rigo Allison; When: 2 - 3 days; Reason: If symptoms return, Further diagnostic work-up, Recheck today's complaints, Continuance of care, Re-evaluation by your physician. Problem is new. Symptoms have improved. kdr
[2018-05-21] MEDS ORDERED: MORPHINE 4 MG/ML SYR ONE (15:42)
[2018-05-21] MEDS ORDERED: FAMOTIDINE 20 MG/2 ML VIAL IV ONE (15:42)
[2018-05-21] MEDS ORDERED: MAGNE/ALUM HYDROXD 30 ML UCUP ONE (15:42)
[2018-05-21] MEDS ORDERED: LIDOCAINE VISCOUS 2% SOLN 15 ML UDC ONE (15:42)
[2018-05-21] MEDS ORDERED: DICYCLOMINE HCL 10 MG CAP ONE (16:46)
[2018-05-21 18:47] VITALS: TEMP 99.1
[2018-05-21 18:48] VITALS: BP 101/67; O2SAT 99
== END 2018-05-21 17:24 | disposition home or self-care (01) ==
LOC: ER 11:55
DX: R10.2 Pelvic and perineal pain (principal); Z88.2 Allergy status to sulfonamides; Z90.79 Acquired absence of other genital organ(s)
CPT/HCPCS: 36415; 74177; 80048; 80076; 83690; 85025; 96374; 96375; 99284; J2405; Q9967

== ENCOUNTER 2018-05-24 23:28 | Emergency (ER) | payer SELFPAY ==
--- OUTSIDE RECORDS SUMMARY | 2018-05-24 23:30 | XMS REPORT | Continuity of Care Document ---
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 Date Perfomer Comments Source Fallopian tube [id number] Misitalo Neuro operation Fallopian tube [id number] formerly [facility]
--- OUTSIDE RECORDS SUMMARY | 2018-05-24 23:31 | XMS REPORT ---
:1980 Author Organization [facility] Address [address] [place] [address] [address]. [address] [place] [address] Care Team Providers Name Role Phone DR STEFANIE SPAULDING Unavailable Unavailable Problems This patient has no known problems. Allergies, Adverse Reactions, Alerts This patient has no known allergies or adverse reactions. Medications This patient has no known medications. Encounters Start End Encounter Admission Attending Care Care Encounter Date/Time Date/Time Type Type Clinicians Facility Department ID 2018-04-22 2018-04-22 Outpatient BLANCA SILVA WWDIXONU [id number] 08:51:00 14:19:00 STEFANIE 2018-03-04 2018-03-04 Outpatient Amy SPAULDING Amy WWDIXONU [id number] 13:15:00 13:15:00 STEFANIE Results Test Description Test Time Test Comments Text Results Atomic Results Result Comments URINE MONOCLONAL *WW* 2018-04-22 09:31:00 Test Item Value Reference Range Comments PREG UR (test code=PGU) NEGATIVE NEGATIVE
[2018-05-25 00:30] LABS: Urine Blood TRACE (NEG); Urine Glucose NEGATIVE (NEG); Urine Protein NEGATIVE (NEG); Urine Specific Gravity 1.015 (1.005-1.030); Urine pH 7.5 (5.0-7.0)
[2018-05-25] MEDS ORDERED: MEPERIDINE HCL 50 MG/ML AMP ONE (00:46)
[2018-05-25] MEDS ORDERED: MAGNE/ALUM HYDROXD 30 ML UCUP ONE (00:46)
[2018-05-25] MEDS ORDERED: ONDANSETRON 4 MG/2 ML VIAL ONE (00:46)
[2018-05-25] MEDS ORDERED: PANTOPRAZOLE 40 MG INJ ONE (00:46)
[2018-05-25] MEDS ORDERED: LIDOCAINE VISCOUS 2% SOLN 15 ML UDC ONE (00:47)
[2018-05-25] MEDS ORDERED: NA CHLORIDE 0.9% 500 ML ONE (00:47)
--- NOTE | 2018-05-25 01:22 | ER ---
Nurse's Notes [facility] Name: Yoli Duffy Age: 38 yrs Sex: Female : 1980 Arrival Date: 05/24/2018 Time: 23:28 Bed 6 Private MD: Rigo Allison R Diagnosis: Epigatric pain. Peptic ulcer disease Presentation: 05/24 23:57 Presenting complaint: Patient states: Epigastric pain that began 1 week ago, states lp1 seen by ED and also seen at [facility] for same complaint with no relief; States pain was worse when eating but is not all of the time, radiating to left flank;. Transition of care: patient was not received from another setting of care. Onset of symptoms was May 24, 2018. Risk Assessment: Do you want to hurt yourself or someone else? Patient reports no desire to harm self or others. Initial Sepsis Screen: Does the patient meet any 2 criteria? No. Patient's initial sepsis screen is negative. Does the patient have a suspected source of infection? No. Patient's initial sepsis screen is negative. Care prior to arrival: None. 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 - Social history:: Smoking status: Patient/guardian denies using tobacco. - Ebola Screening: : No symptoms or risks identified at this time. Screenin:00 Abuse screen: Denies threats or abuse. Denies injuries from another. Nutritional lp1 screening: No deficits noted. Tuberculosis screening: No symptoms or risk factors identified. Fall Risk None identified. Assessment: 00:03 General: Appears uncomfortable, Behavior is cooperative, appropriate for age, anxious. jd3 Pain: Complains of pain in left flank, right flank and epigastric area Quality of pain is described as burning, sharp, tender. Neuro: Level of Consciousness is awake, alert, obeys commands, Oriented to person, place, time, situation, Appropriate for age. Cardiovascular: Capillary refill < 3 seconds Patient's skin is warm and dry. Respiratory: Airway is patent Respiratory effort is even, unlabored, Respiratory pattern is regular, symmetrical, Breath sounds are clear bilaterally. GI: Abdomen is round non-distended, Bowel sounds present X 4 quads. Abd is soft Abdomen is tender to palpation in epigastric area Reports upper abdominal pain, diarrhea, nausea. : Reports blood in urine. EENT: No signs and/or symptoms were reported regarding the EENT system. Derm: Skin is intact, Skin is dry, Skin is normal, Skin temperature is warm. Musculoskeletal: Circulation, motion, and sensation intact. Range of motion: intact in all extremities. 01:14 Reassessment: Patient and/or family updated on plan of care and expected duration. Pain ea level reassessed. Patient is alert, oriented x 3, equal unlabored respirations, skin warm/dry/pink. Patient states symptoms have improved. 01:53 Reassessment: Patient appears in no apparent distress at this time. Patient and/or jd3 family updated on plan of care and expected duration. Pain level reassessed. Patient is alert, oriented x 3, equal unlabored respirations, skin warm/dry/pink. Vital Signs: 00:00 BP 109 / 80; Pulse 72; Resp 16; Temp 97.9(O); Pulse Ox 99% on R/A; Weight 70.31 kg; lp1 Height 5 ft. 3 in. (160.02 cm); Pain 5/10; 01:15 BP 100 / 66; Pulse 65; Resp 18; Pulse Ox 100% on R/A; ea 00:00 Body Mass Index 27.46 (70.31 kg, 160.02 cm) lp1 ED Course: 05/24 23:28 Patient arrived in ED. ds1 23:28 Rigo Allison MD is Private Physician. ds1 23:52 Triston Chirinos RN is Primary Nurse. jd3 23:58 Triage completed. lp1 07 00:00 Arm band placed on left wrist. lp1 00:04 Solomon Rodríguez MD is Attending Physician. pkl 00:09 Patient has correct armband on for positive identification. Placed in gown. Bed in low jd3 position. Call light in reach. Side rails up X 1. 00:40 Inserted saline lock: 22 gauge in right antecubital area, using aseptic technique. ea 01:21 Serg Lizarraga MD is Referral Physician. pkl 01:49 No provider procedures requiring assistance completed. IV discontinued, intact, jd3 bleeding controlled, No redness/swelling at site. Pressure dressing applied. Administered Medications: 00:55 Drug: NS 0.9% 500 ml Route: IV; Rate: bolus; Site: right antecubital; ea 01:37 Follow up: Response: No adverse reaction; IV Status: Completed infusion jd3 00:55 Drug: Demerol 50 mg Route: IVP; Site: right antecubital; ea 01:34 Follow up: Response: No adverse reaction; Pain is decreased ea 00:55 Drug: Zofran 4 mg Route: IVP; Site: right antecubital; ea 01:33 Follow up: Response: No adverse reaction; Marked relief of symptoms ea 00:55 Drug: ProTONIX 40 mg Route: IVP; Site: right antecubital; ea 01:33 Follow up: Response: No adverse reaction ea 00:55 Drug: GI Cocktail without - (Maalox Suspension 30 ml, Lidocaine Liquid 2 % 15 ea ml) Route: PO; 01:33 Follow up: Response: No adverse reaction; Pain is decreased ea Outcome: 01:21 Discharge ordered by . pkl 01:50 Discharged to home ambulatory, with family. jd3 01:50 Condition: stable 01:50 Discharge instructions given to patient, family, Instructed on discharge instructions, follow up and referral plans. medication usage, Demonstrated understanding of instructions, follow-up care, medications, Prescriptions given X 1. 01:54 Patient left the ED. jd3 Signatures: Solomon Rodríguez MD MD pkl Sanford, Demi ds1 Kallie Nation RN RN lp1 Sherita Marshall RN RN Triston Spencer RN RN jd3
--- NOTE | 2018-05-25 01:23 | EDPHYS ---
Physician Documentation [facility] Name: Yoli Duffy Age: 38 yrs Sex: Female : 1980 Arrival Date: 05/24/2018 Time: 23:28 Bed 6 Private MD: Rigo Allison R ED Physician Solomon Rodríguez HPI: 05/25 00:23 This 38 yrs old Female presents to ER via Ambulatory with complaints of pkl Abdominal Pain. 00:23 The patient presents with abdominal pain in the epigastric area. Onset: The pkl symptoms/episode began/occurred 5 day(s) ago. The symptoms do not radiate. Associated signs and symptoms: Pertinent positives: nausea. The patient has been recently seen at the [facility] Emergency Department, this week, for similar complaints labs were performed, CT scan was performed. 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 - Social history:: Smoking status: Patient/guardian denies using tobacco. - Ebola Screening: : No symptoms or risks identified at this time. ROS: 00:23 Eyes: Negative for injury, pain, redness, and discharge, ENT: Negative for injury, pkl pain, and discharge, Neck: Negative for injury, pain, and swelling, Cardiovascular: Negative for chest pain, palpitations, and edema, Respiratory: Negative for shortness of breath, cough, wheezing, and pleuritic chest pain. 00:23 Abdomen/GI: Positive for abdominal pain, nausea, of the epigastric area. 00:23 Back: Negative for acute changes. 00:23 : Negative for urinary symptoms. 00:23 MS/extremity: Negative for acute changes. 00:23 Skin: Negative for rash. 00:23 Neuro: Negative for altered mental status. Exam: 00:23 Head/Face: Normocephalic, atraumatic. Eyes: Pupils equal round and reactive to light, pkl extra-ocular motions intact. Lids and lashes normal. Conjunctiva and sclera are non-icteric and not injected. Cornea within normal limits. Periorbital areas with no swelling, redness, or edema. ENT: Nares patent. No nasal discharge, no septal abnormalities noted. Tympanic membranes are normal and external auditory canals are clear. Oropharynx with no redness, swelling, or masses, exudates, or evidence of obstruction, uvula midline. Mucous membranes moist. Neck: Trachea midline, no thyromegaly or masses palpated, and no cervical lymphadenopathy. Supple, full range of motion without nuchal rigidity, or vertebral point tenderness. No Meningismus. Chest/axilla: Normal chest wall appearance and motion. Nontender with no deformity. No lesions are appreciated. Cardiovascular: Regular rate and rhythm with a normal S1 and S2. No gallops, murmurs, or rubs. Normal PMI, no JVD. No pulse deficits. Respiratory: Lungs have equal breath sounds bilaterally, clear to auscultation and percussion. No rales, rhonchi or wheezes noted. No increased work of breathing, no retractions or nasal flaring. 00:23 Abdomen/GI: Bowel sounds: normal, Palpation: soft, in the epigastric area. 00:23 Back: Exam negative for acute changes. 00:23 : Exam negative for acute changes. 00:23 Musculoskeletal/extremity: Exam is negative for acute changes. 00:23 Skin: Exam negative for rash. 00:23 Neuro: Orientation: is normal, Mentation: is normal, Cranial nerves: grossly normal, Motor: is normal. Vital Signs: 00:00 BP 109 / 80; Pulse 72; Resp 16; Temp 97.9(O); Pulse Ox 99% on R/A; Weight 70.31 kg; lp1 Height 5 ft. 3 in. (160.02 cm); Pain 5/10; 01:15 BP 100 / 66; Pulse 65; Resp 18; Pulse Ox 100% on R/A; ea 00:00 Body Mass Index 27.46 (70.31 kg, 160.02 cm) lp1 MDM: 00:04 Patient medically screened. pkl 01:20 Data reviewed: vital signs, nurses notes. pk 05/25 00:12 Order name: Urine Dipstick--Ancillary (enter results); Complete Time: 01:14 em1 05/25 00:12 Order name: Urine --Ancillary (enter results); Complete Time: 01:14 em1 05/25 00:32 Order name: IV; Complete Time: 00:54 jd3 Administered Medications: 00:55 Drug: NS 0.9% 500 ml Route: IV; Rate: bolus; Site: right antecubital; ea 01:37 Follow up: Response: No adverse reaction; IV Status: Completed infusion jd3 00:55 Drug: Demerol 50 mg Route: IVP; Site: right antecubital; ea 01:34 Follow up: Response: No adverse reaction; Pain is decreased ea 00:55 Drug: Zofran 4 mg Route: IVP; Site: right antecubital; ea 01:33 Follow up: Response: No adverse reaction; Marked relief of symptoms ea 00:55 Drug: ProTONIX 40 mg Route: IVP; Site: right antecubital; ea 01:33 Follow up: Response: No adverse reaction ea 00:55 Drug: GI Cocktail without - (Maalox Suspension 30 ml, Lidocaine Liquid 2 % 15 ea ml) Route: PO; 01:33 Follow up: Response: No adverse reaction; Pain is decreased ea Disposition: 05/25/18 01:21 Discharged to Home. Impression: Epigatric pain. Peptic ulcer disease. - Condition is Stable. - Prescriptions for Protonix 40 mg Oral Tablet, Delayed Release (E.C.) - take 1 tablet by ORAL route once daily; 15 tablet. - Medication Reconciliation Form, Thank You Letter, Antibiotic Education, Prescription Opioid Use form. - Follow up: Serg Lizarraga MD; When: 2 - 3 days; Reason: Re-evaluation by your physician. - Problem is new. - Symptoms have improved. Signatures: Dispatcher [employer] EDMI Solomon Rodríguez MD MD pkl Pena, Laura RN RN lp1 Sherita Marshall RN RN ea Davies, Jonathon RN RN jd3 Corrections: (The following items were deleted from the chart) 01:54 01:21 05/25/2018 01:21 Discharged to Home. Impression: Epigatric pain. Peptic ulcer jd3 disease. Condition is Stable. Forms are Medication Reconciliation Form, Thank You Letter, Antibiotic Education, Prescription Opioid Use. Follow up: Serg Lizarraga; When: 2 - 3 days; Reason: Re-evaluation by your physician. Problem is new. Symptoms have improved. pkl
[2018-05-25 02:17] VITALS: TEMP 97.9
[2018-05-25 02:19] VITALS: BP 100/66; O2SAT 100
== END 2018-05-25 01:54 | disposition home or self-care (01) ==
LOC: ER 23:28
DX: K27.9 Peptic ulcer, site unspecified, unspecified as acute or chronic, without hemorrhage or perforation (principal)
CPT/HCPCS: 81003; 81025; 96361; 96374; 96375; 99283; C9113; J2175; J2405

== ENCOUNTER 2018-12-11 06:59 | Emergency (ER) | payer OTHER ==
--- OUTSIDE RECORDS SUMMARY | 2018-12-11 07:02 | XMS REPORT | Continuity of Care Document ---
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 best seen on coronal image 25 most likely a calcified meningioma There are otherwise normal de leon-white interfaces, sulci and gyri. There ar e no focal mass lesions on this noncontrast head CT. There is no mass effect , midline shift or edema. There are no [...] a mass, hemorrhage, or subacute stroke. SL: JONATHAN-ABILIO Consultation Notes No Data Provided for This Section Discharge Summaries No Data Provided for This Section History and Physicals No Data Provided for This Section Vital Signs Vital Sign Value Date Comments Source Heart Rate 78 06/02/[address] [facility] [place] [place] Systolic (mm Hg) 108 06/02/[address] [facility] [place] [place] Diastolic (mm Hg) 61 06/02/[address] [facility] [place] [place] Systolic (mm Hg) 105 06/02/[address] [facility] [place] [place] Diastolic (mm Hg) 64 06/02/[address] [facility] [place] [place] Heart Rate 80 06/02/[address] [facility] [place] [place] Systolic (mm Hg) 99 06/02/[address] [facility] [place] [place] Diastolic (mm Hg) 58 06/02/[address] [facility] [place] [place] Temperature Oral (F) 98.6 F 06/02/[address] [facility] [place] [place] Heart Rate 76 06/02/[address] [facility] [place] [place] Temperature Oral (F) 98.6 F 06/02/[address] [facility] [place] [place] Respitory Rate 18 06/02/[address] [facility] [place] [place] Temperature Oral (F) 97.7 F 06/02/[address] [facility] [place] [place] Respitory Rate 17 06/02/[address] [facility] [place] [place] Respitory Rate 18 06/02/[address] [facility] [place] [place] BMI Calculated 26.59 06/01/[address] [facility] [place] [place] Weight 68.1 06/01/[address] [facility] [place] [place] Height 160.02 cm 06/01/[address] [facility] [place] [place] Systolic (mm Hg) 102 09/02/2016 [facility] Diastolic (mm Hg) 78 09/02/2016 [facility] Heart Rate 86 09/02/2016 [facility] Respitory Rate 18 09/02/2016 [facility] BMI Calculated 25.74 09/02/2016 [facility] Weight 65.909 09/02/2016 [facility] Height 160.02 cm 09/02/2016 [facility] Heart Rate 85 09/02/2016 [facility] Respitory Rate 16 09/02/2016 [facility] Systolic (mm Hg) 97 09/02/2016 [facility] Diastolic (mm Hg) 63 09/02/2016 [facility] Temperature Oral (F) 98.1 F 09/02/2016 [facility] Encounters Location Location Encounter Encounter Reason Attending ADM DC Status Source Details Type Number For Provider Date Date Visit [facility] [id number] Ricco 09/02 09/02 [place] 0 Rosanne /2016 [facility] Observation [id number] Clement 06/01 06/02 [facility] [place] 3 Ugorji /2017 [facility] Outpatient [id number] BHARGAV 06/19 Active [facility] 0 DANIEL [place] Outpatient [id number] BHARGAV 07/24 Active [facility] 1 DANIEL Ejsse MNA Phone [phone] 09/05 09/07 [facility] Neurosurger Message Neuro y [facility] [id number] BHARGAV 09/18 [facility] 2 DANIEL [place] Departed [id number] MERY 06/10 06/10 [facility] 9 JUVENAL TABARES /2018 a [facility] Procedures Procedure Code Date Perfomer Comments Source X-ray of [id number] 06/10/2018 JUVENAL Mullen abdomen, [facility] Fallopian tube [id number] [facility] Neuro operation Fallopian tube [id number] [facility] Assessment and Plan Assessment and Plan Date Source Extracted from:Title: ut progress note 06/02/[address] [facility] [place] [place] Author: Juan Fuentes DO Date: 06/01/17 Patient [...] Plan for DC home tomorrow. Please page [phone] with any further questions. Extracted from:Title: History and Physical Author: Samia Garcia DO Date: 06/01/17 1.Acute pain Multimodal pain regimen TLSO brace for comfort 2.Closed compression fracture of L1 lumbar vertebra L1 compression fractures are seen on CT spine Follow up in [address] Daniel in clinic with repeat A/P and lateral plain films. Please call [phone] to schedule an appointment. Early ambulation Pending pain control Plan of Care Plan of Care Date Source Discharge Date 06/10/18 11:50pm 06/10/2018 [facility] Instructions/Education Provided Musculoskeletal Pain Constipation, Adult, [id number] Dystonia Forms Provided Portal Welcome Letter Prescriptions See Medication Section Referrals NO PHYSICIAN Social History Social History Date Source Social History Problem Response Recorded Date/Time Onset Date Status 2018 [facility] No 06/10/2018 8:16pm Not Applicable Not Applicable Smoking Status Start Date Stop Date Never smoker Social History [facility] Use: None. Alcohol Current, Type Wine. Frequency: 1-2 times per year. Smoking Status Never smoker; Exposure to Tobacco Smoke None; Cigarette Smoking Last 365 Days No; Reg Smoking Cessation Counseling No entered on: 06/20/17 Social History TypeResponse 09/02/[address] [facility] [place] [place] Substance Abuse Use: None. Alcohol Current, Type Wine. Frequency: 1-2 times per year. Smoking Status Never smoker; Exposure to Tobacco Smoke None; Cigarette Smoking Last 365 Days No; Reg Smoking Cessation Counseling No entered on: 06/20/17 Social History TypeResponse 09/02/2016 [facility] Substance Abuse Use: None. Alcohol Never Smoking Status Never smoker; Exposure to Tobacco Smoke None; Cigarette Smoking Last 365 Days No; Reg Smoking Cessation Counseling No Family History No Data Provided for This Section Advance Directives Order Name Results Value Date Source Advance Directives Advance Directives Directive Response Recorded Date/ Time 06/10/2018 [place] Advance Directives [facility] 05/27/14 1:44am Advance Directive on File No 06/10/18 8:16pm Directive to Physicians/Living Will No 05/26/14 4:29am Health Care Proxy No 05/27/14 1:44am Organ Donor No 05/27/14 1:44am Medical Power of Lacquer Sizer No 05/27/14 1:44am Patient/Family Given Education Material R/T Directives? Y - 06/10/18...MK 06/10/18 9:16pm Functional Status No Data Provided for This Section
--- OUTSIDE RECORDS SUMMARY | 2018-12-11 07:03 | XMS REPORT ---
:1980 [facility] [address] [place] [address] [address] [place] [address] Care Team Providers Name Role Phone DR STEFANIE SPAULDING Unavailable Unavailable Problems This patient has no known problems. Allergies, Adverse Reactions, Alerts This patient has no known allergies or adverse reactions. Medications This patient has no known medications. Encounters Start End Encounter Admission Attending Care Care Encounter Date/Time Date/Time Type Type Clinicians Facility Department ID 2018-06-03 2018-06-04 Outpatient Amy SPAULDING [facility] [id number] 16:12:00 18:07:00 STEFNAIE 2018-04-22 2018-04-22 Outpatient [facility] [id number] 08:51:00 14:19:00 STEFANIE 2018-03-04 2018-03-04 Outpatient Amy [facility]PAULDING [facility] [id number] 13:15:00 13:15:00 STEFANIE Results Test Description Test Time Test Comments Text Results Atomic Results Result Comments COMPREHENSIVE METABOLIC THAYER *DELMY* 2018-06-04 06:51:00 Test Item Value Reference Range Comments GLUCOSE (test code=06D) 100 mg/dL 75-100 SODIUM (test code=01A) 138 mmol/L 136-145 POTASSIUM (test code=01B) 3.9 mmol/L 3.6-5.1 CHLORIDE (test code=04A) 109 mmol/L 98-107 CO2 (test code=02A) 24 mmol/L 22-32 ANION GAP (test code=ANG) 9.1 mmol/L BUN (test code=05D) 7 mg/dL 7-18 CREATININE (test code=03E) 0.7 mg/dL 0.4-1.1 BUN/CREA (test code=BCR) 10 12-20 CALCIUM (test code=09D) 8.4 mg/dL 8.3-9.5 BILI TOTAL (test code=11A) 1.0 mg/dL 0.2-1.0 PROTEIN (test code=07D) 6.5 g/dL 6.4-8.2 ALBUMIN (test code=08D) 3.5 g/dL 3.5-4.8 GLOBULIN (test code=GLB) 3.0 g/dL 1.5-3.8 ALB/GLOB (test code=AGRR) 1.2 1.0-2.6 ALK PHOS (test code=35A) 38 IU/L 42-121 AST (test code=30A) 18 IU/L <=42 ALT (test code=31A) 17 IU/L <=78 CBC (INCLUDES AUTOMATED DIFFERENTIAL)*[id number] 06:18:00 Test Item Value Reference Range Comments WBC (test code=WBC) 7.9 10\S\3/uL 4.5-11.0 RBC (test code=RBC) 3.57 10\S\6/uL 4.30-5.70 HGB (test code=HBG) 11.8 g/dL 12.0-15.5 HCT (test code=HCT) 33.8 % 35.0-44.0 MCV (test code=MCV) 94.7 fL 81.0-99.0 MCH (test code=MCH) 33.1 pg 27.0-31.0 MCHC (test code=MCHC) 34.9 g/dL 32.0-36.0 RDW (test code=RDW) 11.7 % 11.5-14.5 PLT (test code=PLT) 141 10\S\3/uL 130-400 MPV (test code=MPV) 9.7 fL 9.4-12.4 NEUTROP # (test code=NE#) 5.5 10\S\3/uL 1.6-8.0 LYMPH # (test code=LY#) 1.8 10\S\3/uL 1.1-3.5 MONOCYTE # (test code=MO#) 0.5 10\S\3/uL 0.0-1.1 EOSINOPH # (test code=EO#) 0.0 10\S\3/uL 0.0-0.7 BASOPHIL # (test code=BA#) 0.0 10\S\3/uL 0.0-0.3 IG # (test code=IG#) 0.03 10\S\3/uL 0.00-0.06 NRBC # (test code=NRBC#) 0.00 10\S\3/uL 0.00-0.01 NEUTROPH % (test code=NE%) 69.7 % 35.0-73.0 LYMPH % (test code=LY%) 23.2 % 20.0-55.0 MONO % (test code=MO%) 6.5 % 2.5-10.0 EOSINOPH % (test code=EO%) 0.1 % 0.0-5.0 BASOPHIL % (test code=BA%) 0.1 % 0.0-2.0 IG % (test code=IG%) 0.4 % 0.0-0.8 NRBC% (test code=NRBC%) 0.0 % 0.0-0.2 MANDIFF (test code=WMDIFF) NO NO RBC MORPH (test code=WRBCMOR) NORMAL CT ABDOMEN AND PELVIS WITH AND WITHOUT CONTRAST2018-06-03 17:32:47LOCATION: [id number]: CT ABDOMEN AND PELVIS WITH AND WITHOUT CONTRAST*WW*HISTORY: [id number]: Pain , postoperative TECHNIQUE: Axial imaging of the abdomen and pelvis from the lung base to thepubic symphysisprior to and following administration of unspecifiedintravenous contrast. Sagittal and coronal reconstructions. CT scan performed using appropriate/available dose optimization/ reductiontechniques.DLP 2930.29 mGy*cmCOMPARISON: None.FINDINGS:Lung base:The visualized lung base is clear. The heart size is normal. Nopericardial or pleural effusion is present. Liver/spleen: Unremarkable.Biliary system: The gallbladder is surgically absent. No focal fluid in thegallbladder fossa. No biliary duct dilatation.Pancreas: Unremarkable.Adrenal glands: Normal. Kidneys: Unremarkable. Vascular: Normal caliber abdominal aorta. Normal portal venous opacification.Lymph nodes: No abdominal lymphadenopathy. Pelvicstructures: The urinary bladder is unremarkably distended. No pelviclymphadenopathy. Small pelvic free fluid. The endometrial cavity thickness isat the upper limit of normal at 20 mm. Mild asymmetric prominence of the rightovary, within normal limits at approximately 2.8 x 2.3 x 2.0 cm.Gastrointestinal tract: No abnormal bowel dilatation. Normal caliberappendix is identified. No focal fluid collections, ascites or evidence ofpneumoperitoneum. Bones and soft tissues: The osseous structures are intact.IMPRESSION:1. Expected postsurgical changes of prior cholecystectomy. No biliary ductdilatation.2. Mild asymmetric prominence of the right ovary associated with a small amountof pelvic fluid. These findings likely represent physiologic change. If thepatient is focally symptomatic, this can be further evaluated with pelvicultrasound.COMPREHENSIVE METABOLIC [id number] 17:08:00 Test Item Value Reference Range Comments GLUCOSE (test code=06D) 144 mg/dL 75-100 SODIUM (test code=01A) 136 mmol/L 136-145 POTASSIUM (test code=01B) 3.1 mmol/L 3.6-5.1 CHLORIDE (test code=04A) 104 mmol/L 98-107 CO2 (test code=02A) 26 mmol/L 22-32 ANION GAP (test code=ANG) 9.3 mmol/L BUN (test code=05D) 10 mg/dL 7-18 CREATININE (test code=03E) 0.8 mg/dL 0.4-1.1 BUN/CREA (test code=BCR) 13 12-20 CALCIUM (test code=09D) 9.1 mg/dL 8.3-9.5 BILI TOTAL (test code=11A) 1.6 mg/dL 0.2-1.0 PROTEIN (test code=07D) 7.0 g/dL 6.4-8.2 ALBUMIN (test code=08D) 3.8 g/dL 3.5-4.8 GLOBULIN (test code=GLB) 3.2 g/dL 1.5-3.8 ALB/GLOB (test code=AGRR) 1.2 1.0-2.6 ALK PHOS (test code=35A) 43 IU/L 42-121 AST (test code=30A) 23 IU/L <=42 ALT (test code=31A) 21 IU/L <=78 CBC (INCLUDES AUTOMATED DIFFERENTIAL)*[id number] 16:53:00 Test Item Value Reference Range Comments WBC (test code=WBC) 8.6 10\S\3/uL 4.5-11.0 RBC (test code=RBC) 3.74 10\S\6/uL 4.30-5.70 HGB (test code=HBG) 12.4 g/dL 12.0-15.5 HCT (test code=HCT) 34.8 % 35.0-44.0 MCV (test code=MCV) 93.0 fL 81.0-99.0 MCH (test code=MCH) 33.2 pg 27.0-31.0 MCHC (test code=MCHC) 35.6 g/dL 32.0-36.0 RDW (test code=RDW) 11.6 % 11.5-14.5 PLT (test code=PLT) 145 10\S\3/uL 130-400 MPV (test code=MPV) 9.6 fL 9.4-12.4 NEUTROP # (test code=NE#) 7.5 10\S\3/uL 1.6-8.0 LYMPH # (test code=LY#) 1.0 10\S\3/uL 1.1-3.5 MONOCYTE # (test code=MO#) 0.1 10\S\3/uL 0.0-1.1 EOSINOPH # (test code=EO#) 0.0 10\S\3/uL 0.0-0.7 BASOPHIL # (test code=BA#) 0.0 10\S\3/uL 0.0-0.3 IG # (test code=IG#) 0.03 10\S\3/uL 0.00-0.06 NRBC # (test code=NRBC#) 0.00 10\S\3/uL 0.00-0.01 NEUTROPH % (test code=NE%) 86.8 % 35.0-73.0 LYMPH % (test code=LY%) 11.9 % 20.0-55.0 MONO % (test code=MO%) 0.9 % 2.5-10.0 EOSINOPH % (test code=EO%) 0.0 % 0.0-5.0 BASOPHIL % (test code=BA%) 0.1 % 0.0-2.0 IG % (test code=IG%) 0.3 % 0.0-0.8 NRBC% (test code=NRBC%) 0.0 % 0.0-0.2 MANDIFF (test code=WMDIFF) NO NO RBC MORPH (test code=WRBCMOR) NORMAL URINE MONOCLONAL *WW*2018-06-03 09:58:00 Test Item Value Reference Range Comments PREG UR (test code=PGU) NEGATIVE NEGATIVE URINE MONOCLONAL *WW*2018-04-22 09:31:00 Test Item Value Reference Range Comments PREG UR (test code=PGU) NEGATIVE NEGATIVE
[2018-12-11] MEDS ORDERED: KETOROLAC 30 MG/ML INJ ONE (07:43)
[2018-12-11] MEDS ORDERED: ONDANSETRON 4 MG/2 ML VIAL ONE ×2 (07:44→08:54)
[2018-12-11] MEDS ORDERED: FAMOTIDINE 20 MG/2 ML VIAL IV ONE (07:44)
[2018-12-11 07:55] LABS: Absolute Lymphocytes (CBC) 0.9 K/uL (0.7-4.9); Basophils % 0.1 % (0-1.3); MPV 7.9 fL (7.6-11.3)
[2018-12-11 08:06] LABS: Albumin 3.9 g/dL (3.4-5.0); Bilirubin Direct 0.2 mg/dL (0-0.2); Bilirubin Total 1.2 mg/dL (0.2-1.0); Potassium 3.6 mmol/L (3.5-5.1); Protein, Total 7.1 g/dL (6.4-8.2)
[2018-12-11 08:52] LABS: Blood Morphology Comment NOT SEEN (NOT SEEN); Platelet Estimate ADEQ
--- NOTE | 2018-12-11 09:05 | RAD REPORT ---
EXAM DESCRIPTION: CT - Abdomen Pelvis W Contrast - 12/11/2018 8:26 am CLINICAL HISTORY: Abdominal pain with nausea. COMPARISON: none. TECHNIQUE: Computed axial tomography of the abdomen pelvis was obtained. 100 cc Isovue-300 was admin istered intravenously. Oral contrast was not requested which limits evaluation of bowel. All CT scans are performed using dose optimization technique as appropriate and may include automated exposure control or mA/KV adjustment according to patient size. FINDINGS: Mild fatty liver. Cholecystectomy The Spleen, pancreas, adrenal and kidneys appear unremarkable. There is no evidence of diverticulitis. Normal appendix 2 centimeter irregularly-shaped right ovarian cyst without significant free fluid IMPRESSION: 2 centimeter irregularly-shaped right ovarian cyst without significant free fluid may mancia ve recently ruptured
--- NOTE | 2018-12-11 09:10 | EDPHYS ---
Physician Documentation [facility] Name: Yoli Duffy Age: 38 yrs Sex: Female : 1980 Arrival Date: 12/11/2018 Time: 07:02 Bed 7 Private MD: Rigo Allison R ED Physician Luis Palmer HPI: 12/11 08:16 This 38 yrs old Female presents to ER via Ambulatory with complaints of kb Abdominal Pain, Nausea. 08:16 The patient presents with abdominal pain in the upper abdomen. Onset: The kb symptoms/episode began/occurred this morning, at 03:00. The symptoms do not radiate. Associated signs and symptoms: Pertinent positives: nausea and vomiting. The symptoms are described as constant. Modifying factors: The symptoms are alleviated by nothing, the symptoms are aggravated by nothing. Severity of pain: At its worst the pain was moderate in the emergency department the pain is unchanged. The patient has not experienced similar symptoms in the past. The patient has not recently seen a physician. 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 - Social history:: Smoking status: unknown. - Ebola Screening: : No symptoms or risks identified at this time. ROS: 08:15 Constitutional: Negative for fever, chills, and weight loss, ENT: Negative for injury, kb pain, and discharge, Neck: Negative for injury, pain, and swelling, Cardiovascular: Negative for chest pain, palpitations, and edema, Respiratory: Negative for shortness of breath, cough, wheezing, and pleuritic chest pain, Back: Negative for injury and pain, : Negative for injury, bleeding, discharge, and swelling, MS/Extremity: Negative for injury and deformity, Skin: Negative for injury, rash, and discoloration, Neuro: Negative for headache, weakness, numbness, tingling, and seizure. 08:15 Abdomen/GI: Positive for abdominal pain, nausea and vomiting, Negative for diarrhea, constipation, abdominal cramps, abdominal distension, anorexia. Exam: 08:15 Constitutional: This is a well developed, well nourished patient who is awake, alert, kb and in no acute distress. Head/Face: Normocephalic, atraumatic. Eyes: Pupils equal round and reactive to light, extra-ocular motions intact. Lids and lashes normal. Conjunctiva and sclera are non-icteric and not injected. Cornea within normal limits. Periorbital areas with no swelling, redness, or edema. ENT: Nares patent. No nasal discharge, no septal abnormalities noted. Tympanic membranes are normal and external auditory canals are clear. Oropharynx with no redness, swelling, or masses, exudates, or evidence of obstruction, uvula midline. Mucous membranes moist. Neck: Trachea midline, no thyromegaly or masses palpated, and no cervical lymphadenopathy. Supple, full range of motion without nuchal rigidity, or vertebral point tenderness. No Meningismus. Chest/axilla: Normal chest wall appearance and motion. Nontender with no deformity. No lesions are appreciated. Cardiovascular: Regular rate and rhythm with a normal S1 and S2. No gallops, murmurs, or rubs. Normal PMI, no JVD. No pulse deficits. Respiratory: Lungs have equal breath sounds bilaterally, clear to auscultation and percussion. No rales, rhonchi or wheezes noted. No increased work of breathing, no retractions or nasal flaring. Back: No spinal tenderness. No costovertebral tenderness. Full range of motion. Skin: Warm, dry with normal turgor. Normal color with no rashes, no lesions, and no evidence of cellulitis. MS/ Extremity: Pulses equal, no cyanosis. Neurovascular intact. Full, normal range of motion. Neuro: Awake and alert, GCS 15, oriented to person, place, time, and situation. Cranial nerves II-XII grossly intact. Motor strength 5/5 in all extremities. Sensory grossly intact. Cerebellar exam normal. Normal gait. 08:15 Abdomen/GI: Inspection: abdomen appears normal, Bowel sounds: normal, in all quadrants, Palpation: soft, in all quadrants, mild abdominal tenderness, in the right upper quadrant and left upper quadrant. Vital Signs: 07:22 BP 112 / 66; Pulse 97; Resp 18; Temp 97.9; Pulse Ox 99% on R/A; Weight 69.4 kg; Height iw 5 ft. 2 in. (157.48 cm); Pain 6/10; 08:40 BP 102 / 74; Pulse 84; Resp 18; Pulse Ox 98% on R/A; ph 09:22 BP 99 / 68; Pulse 85; Resp 18; Temp 97.9; Pulse Ox 99% on R/A; ph 07:22 Body Mass Index 27.98 (69.40 kg, 157.48 cm) iw MDM: 07:06 Patient medically screened. kb 08:16 Data reviewed: vital signs, nurses notes. Data interpreted: Pulse oximetry: on room air kb is 99 %. Interpretation: normal. 09:07 Counseling: I had a detailed discussion with the patient and/or guardian regarding: the kb historical points, exam findings, and any diagnostic results supporting the discharge/admit diagnosis, lab results, radiology results, the need for outpatient follow up, an OB/Gyne specialist, to return to the emergency department if symptoms worsen or persist or if there are any questions or concerns that arise at home. 12/11 07:12 Order name: Basic Metabolic Panel; Complete Time: 08:07 kb 12/11 07:12 Order name: CBC with Diff; Complete Time: 08:57 kb 12/11 07:12 Order name: Hepatic Function; Complete Time: 08:07 kb 12/11 07:12 Order name: Lipase; Complete Time: 08:07 kb 12/11 08:08 Order name: CT Abd/Pelvis - IV Contrast Only; Complete Time: 09:07 kb 12/11 08:52 Order name: Manual Differential; Complete Time: 08:57 EDMS 12/11 07:12 Order name: IV Saline Lock; Complete Time: 07:45 kb 12/11 07:12 Order name: Labs collected and sent; Complete Time: 07:45 kb Administered Medications: 07:44 Drug: Zofran 4 mg Route: IVP; Site: right antecubital; ph 08:39 Follow up: Response: No adverse reaction ph 07:45 Drug: Pepcid 20 mg Route: IVP; Site: right antecubital; ph 08:39 Follow up: Response: No adverse reaction ph 07:45 Drug: TORadol - Ketorolac 15 mg Route: IVP; Site: right antecubital; ph 08:39 Follow up: Response: No adverse reaction ph 08:39 Drug: Zofran 4 mg Route: IVP; Site: right antecubital; ph 09:22 Follow up: Response: No adverse reaction; Nausea is decreased ph Disposition: 15:12 Co-signature as Attending Physician, Luis Palmer MD I agree with the assessment and paloma plan of care. Disposition: 12/11/18 09:09 Discharged to Home. Impression: Other ovarian cysts. - Condition is Stable. - Discharge Instructions: Ovarian Cyst, [id number]. - Prescriptions for Zofran 4 mg Oral Tablet - take 1 tablet by ORAL route every 6 hours As needed; 20 tablet. Diclofenac Sodium 75 mg Oral Tablet, Delayed Release (E.C.) - take 1 tablet by ORAL route 2 times per day As needed; 30 tablet. - Medication Reconciliation Form, Thank You Letter, Antibiotic Education, Prescription Opioid Use form. - Follow up: Emergency Department; When: As needed; Reason: Worsening of condition. Follow up: Private Physician; When: 2 - 3 days; Reason: Recheck today's complaints, Continuance of care, Re-evaluation by your physician. Signatures: Dispatcher [employer] EDMS Donya Potts, MEAT AND SEAFOOD CLERK-C MEAT AND SEAFOOD CLERK-Luis Nino MD MD cha Williams, Irene, Tara Patel RN, RN RN ph Corrections: (The following items were deleted from the chart) 09:23 09:09 12/11/2018 09:09 Discharged to Home. Impression: Other ovarian cysts. Condition ph is Stable. Discharge Instructions: Ovarian Cyst, [id number]. Prescriptions for Zofran 4 mg Oral Tablet - take 1 tablet by ORAL route every 6 hours As needed; 20 tablet, Diclofenac Sodium 75 mg Oral Tablet, Delayed Release (E.C.) - take 1 tablet by ORAL route 2 times per day As needed; 30 tablet. and Forms are Medication Reconciliation Form, Thank You Letter, Antibiotic Education, Prescription Opioid Use. Follow up: Emergency Department; When: As needed; Reason: Worsening of condition. Follow up: Private Physician; When: 2 - 3 days; Reason: Recheck today's complaints, Continuance of care, Re-evaluation by your physician. kb
--- NOTE | 2018-12-11 09:10 | ER ---
Nurse's Notes [facility] Name: Yoli Duffy Age: 38 yrs Sex: Female : 1980 Arrival Date: 12/11/2018 Time: 07:02 Bed 7 Private MD: Rigo Allison R Diagnosis: Other ovarian cysts Presentation: 12/11 07:18 Presenting complaint: Patient states: mid abd pain since 3 am, also c/o nausea and dry iw heaving. Transition of care: patient was not received from another setting of care. Onset of symptoms was December 11, 2018. Risk Assessment: Do you want to hurt yourself or someone else? Patient reports no desire to harm self or others. Initial Sepsis Screen: Does the patient meet any 2 criteria? No. Patient's initial sepsis screen is negative. Does the patient have a suspected source of infection? No. Patient's initial sepsis screen is negative. Care prior to arrival: None. 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 - Social history:: Smoking status: unknown. - Ebola Screening: : No symptoms or risks identified at this time. Screenin:24 Abuse screen: Denies threats or abuse. Denies injuries from another. Nutritional ph screening: No deficits noted. Tuberculosis screening: No symptoms or risk factors identified. Fall Risk None identified. Assessment: 07:30 General: Appears in no apparent distress. comfortable, Behavior is calm, cooperative, ph appropriate for age, Denies fever, feeling ill. Pain: Complains of pain in left upper quadrant and right upper quadrant. Neuro: Level of Consciousness is awake, alert, obeys commands, Oriented to person, place, time, situation. Cardiovascular: Capillary refill < 3 seconds in bilateral fingers Patient's skin is warm and dry. Respiratory: Airway is patent Respiratory effort is even, unlabored, Respiratory pattern is regular, symmetrical. GI: Abdomen is flat, non-distended, Bowel sounds present X 4 quads. Abd is soft X 4 quads Reports upper abdominal pain, nausea, Patient currently denies diarrhea, vomiting. : No signs and/or symptoms were reported regarding the genitourinary system. Derm: Skin is intact, is healthy with good turgor, Skin is pink, warm \T\ dry. Musculoskeletal: Circulation, motion, and sensation intact. Range of motion: intact in all extremities. 08:40 Reassessment: Patient appears in no apparent distress at this time. Patient and/or ph family updated on plan of care and expected duration. Pain level reassessed. Patient is alert, oriented x 3, equal unlabored respirations, skin warm/dry/pink. Pt resting quietly, awaiting CT results, VSS. Vital Signs: 07:22 BP 112 / 66; Pulse 97; Resp 18; Temp 97.9; Pulse Ox 99% on R/A; Weight 69.4 kg; Height iw 5 ft. 2 in. (157.48 cm); Pain 6/10; 08:40 BP 102 / 74; Pulse 84; Resp 18; Pulse Ox 98% on R/A; ph 09:22 BP 99 / 68; Pulse 85; Resp 18; Temp 97.9; Pulse Ox 99% on R/A; ph 07:22 Body Mass Index 27.98 (69.40 kg, 157.48 cm) iw ED Course: 07:02 Patient arrived in ED. ds1 07:02 Rigo Allison MD is Private Physician. ds1 07:03 Donya Potts FNP-C [facility]. kb 07:03 Luis Palmer MD is Attending Physician. kb 07:16 Tara Edwards, TOSHA is Primary Nurse. ph 07:19 Triage completed. iw 07:23 Arm band placed on Patient placed in an exam room, on a stretcher. ph 07:24 Patient has correct armband on for positive identification. Placed in gown. Bed in low ph position. Call light in reach. Side rails up X 1. Pulse ox on. NIBP on. Door closed. Noise minimized. Warm blanket given. 07:35 Initial lab(s) drawn, by me, sent to lab. Inserted saline lock: 22 gauge in right ph antecubital area, using aseptic technique. Blood collected. 08:25 CT completed. Patient tolerated procedure well. Patient moved to IA. Patient moved back or from CT. 08:28 CT Abd/Pelvis - IV Contrast Only In Process Unspecified. EDMS 09:21 No provider procedures requiring assistance completed. IV discontinued, intact, ph bleeding controlled, No redness/swelling at site. Pressure dressing applied. Administered Medications: 07:44 Drug: Zofran 4 mg Route: IVP; Site: right antecubital; ph 08:39 Follow up: Response: No adverse reaction ph 07:45 Drug: Pepcid 20 mg Route: IVP; Site: right antecubital; ph 08:39 Follow up: Response: No adverse reaction ph 07:45 Drug: TORadol - Ketorolac 15 mg Route: IVP; Site: right antecubital; ph 08:39 Follow up: Response: No adverse reaction ph 08:39 Drug: Zofran 4 mg Route: IVP; Site: right antecubital; ph 09:22 Follow up: Response: No adverse reaction; Nausea is decreased ph Outcome: 09:09 Discharge ordered by MD. dumas 09:21 Discharged to home ambulatory, with significant other. ph 09:21 Condition: good 09:21 Discharge instructions given to patient, Instructed on discharge instructions, follow up and referral plans. medication usage, Demonstrated understanding of instructions, follow-up care, medications, Prescriptions given X 2. 09:23 Patient left the ED. ph Signatures: Dispatcher [employer] EDSD Donya Potts, STAR SECURITY CONTROLS ASSESSOR-Jessica Champion ds1 Dianelys Aburto RN RN iw Tara Edwards RN RN Uri Denton Corrections: (The following items were deleted from the chart) 07:28 07:22 BP 112 / 66; Pulse 97bpm; Resp 18bpm; Pulse Ox 99% RA; ph iw
[2018-12-11 09:38] VITALS: TEMP 97.9
[2018-12-11 09:40] VITALS: BP 99/68; O2SAT 99
== END 2018-12-11 09:23 | disposition home or self-care (01) ==
LOC: ER 06:59
DX: N83.291 Other ovarian cyst, right side (principal); F41.9 Anxiety disorder, unspecified; Z88.2 Allergy status to sulfonamides
CPT/HCPCS: 36415; 74177; 80048; 80076; 83690; 85025; 96374; 96375; 99284; J2405; Q9967

== ENCOUNTER 2019-09-06 00:32 | Emergency (ER) | payer OTHER, SELFPAY ==
--- OUTSIDE RECORDS SUMMARY | 2019-09-06 00:35 | XMS REPORT ---
:1980 Author Organization [facility] t Address [address] [place] [address] Care Team Providers Name Role Phone DR RABIA SPAULDING Unavailable Unavailable Problems This patient has no known problems. Allergies, Adverse Reactions, Alerts This patient has no known allergies or adverse reactions. Medications This patient has no known medications. Encounters Start End Encounter Admission Attending Care Care Encounter Date/Time Date/Time Type Type Clinicians Facility Department ID 2018-06-03 2018-06-04 Outpatient Amy SPAULDING [id number] 16:12:00 18:07:00 STEFANIE 2018-04-22 2018-04-22 [id number] 08:51:00 14:19:00 STEFANIE 2018-03-04 2018-03-04 Outpatient Amy SPAULDING [facility] [id number] 13:15:00 13:15:00 STEFANIE Results Test Description Test Time Test Comments Text Results Atomic Results Result Comments COMPREHENSIVE METABOLIC THAYER *WW* 2018-06-04 06:51:00 Test Item Value Reference Range Comments GLUCOSE (test code = 06D) 100 mg/dL 75-100 SODIUM (test code = 01A) 138 mmol/L 136-145 POTASSIUM (test code = 01B) 3.9 mmol/L 3.6-5.1 CHLORIDE (test code = 04A) 109 mmol/L 98-107 CO2 (test code = 02A) 24 mmol/L 22-32 ANION GAP (test code = ANG) 9.1 mmol/L BUN (test code = 05D) 7 mg/dL 7-18 CREATININE (test code = 03E) 0.7 mg/dL 0.4-1.1 BUN/CREA (test code = BCR) 10 12-20 CALCIUM (test code = 09D) 8.4 mg/dL 8.3-9.5 BILI TOTAL (test code = 11A) 1.0 mg/dL 0.2-1.0 PROTEIN (test code = 07D) 6.5 g/dL 6.4-8.2 ALBUMIN (test code = 08D) 3.5 g/dL 3.5-4.8 GLOBULIN (test code = GLB) 3.0 g/dL 1.5-3.8 ALB/GLOB (test code = AGRR) 1.2 1.0-2.6 ALK PHOS (test code = 35A) 38 IU/L 42-121 AST (test code = 30A) 18 IU/L <=42 ALT (test code = 31A) 17 IU/L <=78 CBC (INCLUDES AUTOMATED DIFFERENTIAL)*[id number] 06:18:00 Test Item Value Reference Range Comments WBC (test code = WBC) 7.9 10\S\3/uL 4.5-11.0 RBC (test code = RBC) 3.57 10\S\6/uL 4.30-5.70 HGB (test code = HBG) 11.8 g/dL 12.0-15.5 HCT (test code = HCT) 33.8 % 35.0-44.0 MCV (test code = MCV) 94.7 fL 81.0-99.0 MCH (test code = MCH) 33.1 pg 27.0-31.0 MCHC (test code = MCHC) 34.9 g/dL 32.0-36.0 RDW (test code = RDW) 11.7 % 11.5-14.5 PLT (test code = PLT) 141 10\S\3/uL 130-400 MPV (test code = MPV) 9.7 fL 9.4-12.4 NEUTROP # (test code = NE#) 5.5 10\S\3/uL 1.6-8.0 LYMPH # (test code = LY#) 1.8 10\S\3/uL 1.1-3.5 MONOCYTE # (test code = MO#) 0.5 10\S\3/uL 0.0-1.1 EOSINOPH # (test code = EO#) 0.0 10\S\3/uL 0.0-0.7 BASOPHIL # (test code = BA#) 0.0 10\S\3/uL 0.0-0.3 IG # (test code = IG#) 0.03 10\S\3/uL 0.00-0.06 NRBC # (test code = NRBC#) 0.00 10\S\3/uL 0.00-0.01 NEUTROPH % (test code = NE%) 69.7 % 35.0-73.0 LYMPH % (test code = LY%) 23.2 % 20.0-55.0 MONO % (test code = MO%) 6.5 % 2.5-10.0 EOSINOPH % (test code = EO%) 0.1 % 0.0-5.0 BASOPHIL % (test code = BA%) 0.1 % 0.0-2.0 IG % (test code = IG%) 0.4 % 0.0-0.8 NRBC% (test code = NRBC%) 0.0 % 0.0-0.2 MANDIFF (test code = WMDIFF) NO NO RBC MORPH (test code = WRBCMOR) NORMAL CT ABDOMEN AND PELVIS WITH AND WITHOUT CONTRAST2018-06-03 17:32:47LOCATION: [id number]: CT ABDOMEN AND PELVIS WITH AND WITHOUT CONTRAST*WW*HISTORY: [id number]: Pain , postoperative TECHNIQUE: Axial imaging of the abdomen and pelvis from the lung base to thepubic symphysisprior to and following administration of unspecifiedintravenous contrast. Sagittal and coronal reconstructions. CT scan performed using appropriate/available dose optimization/reductiontechniques.DLP 2930.29 mGy*cmCOMPARISON: None.FINDINGS:Lung base:The visualized lung base [...] of normal at 20 mm. Mild asymmetric pr ominence of the rightovary, within normal limits at [...] can be further evaluated with pelvicultrasound.COMPREHENSIVE METABOLIC [id number] 17:08:00 Test Item Value Reference Range Comments GLUCOSE (test code = 06D) 144 mg/dL 75-100 SODIUM (test code = 01A) 136 mmol/L 136-145 POTASSIUM (test code = 01B) 3.1 mmol/L 3.6-5.1 CHLORIDE (test code = 04A) 104 mmol/L 98-107 CO2 (test code = 02A) 26 mmol/L 22-32 ANION GAP (test code = ANG) 9.3 mmol/L BUN (test code = 05D) 10 mg/dL 7-18 CREATININE (test code = 03E) 0.8 mg/dL 0.4-1.1 BUN/CREA (test code = BCR) 13 12-20 CALCIUM (test code = 09D) 9.1 mg/dL 8.3-9.5 BILI TOTAL (test code = 11A) 1.6 mg/dL 0.2-1.0 PROTEIN (test code = 07D) 7.0 g/dL 6.4-8.2 ALBUMIN (test code = 08D) 3.8 g/dL 3.5-4.8 GLOBULIN (test code = GLB) 3.2 g/dL 1.5-3.8 ALB/GLOB (test code = AGRR) 1.2 1.0-2.6 ALK PHOS (test code = 35A) 43 IU/L 42-121 AST (test code = 30A) 23 IU/L <=42 ALT (test code = 31A) 21 IU/L <=78 CBC (INCLUDES AUTOMATED DIFFERENTIAL)*[id number] 16:53:00 Test Item Value Reference Range Comments WBC (test code = WBC) 8.6 10\S\3/uL 4.5-11.0 RBC (test code = RBC) 3.74 10\S\6/uL 4.30-5.70 HGB (test code = HBG) 12.4 g/dL 12.0-15.5 HCT (test code = HCT) 34.8 % 35.0-44.0 MCV (test code = MCV) 93.0 fL 81.0-99.0 MCH (test code = MCH) 33.2 pg 27.0-31.0 MCHC (test code = MCHC) 35.6 g/dL 32.0-36.0 RDW (test code = RDW) 11.6 % 11.5-14.5 PLT (test code = PLT) 145 10\S\3/uL 130-400 MPV (test code = MPV) 9.6 fL 9.4-12.4 NEUTROP # (test code = NE#) 7.5 10\S\3/uL 1.6-8.0 LYMPH # (test code = LY#) 1.0 10\S\3/uL 1.1-3.5 MONOCYTE # (test code = MO#) 0.1 10\S\3/uL 0.0-1.1 EOSINOPH # (test code = EO#) 0.0 10\S\3/uL 0.0-0.7 BASOPHIL # (test code = BA#) 0.0 10\S\3/uL 0.0-0.3 IG # (test code = IG#) 0.03 10\S\3/uL 0.00-0.06 NRBC # (test code = NRBC#) 0.00 10\S\3/uL 0.00-0.01 NEUTROPH % (test code = NE%) 86.8 % 35.0-73.0 LYMPH % (test code = LY%) 11.9 % 20.0-55.0 MONO % (test code = MO%) 0.9 % 2.5-10.0 EOSINOPH % (test code = EO%) 0.0 % 0.0-5.0 BASOPHIL % (test code = BA%) 0.1 % 0.0-2.0 IG % (test code = IG%) 0.3 % 0.0-0.8 NRBC% (test code = NRBC%) 0.0 % 0.0-0.2 MANDIFF (test code = WMDIFF) NO NO RBC MORPH (test code = WRBCMOR) NORMAL URINE MONOCLONAL *WW*2018-06-03 09:58:00 Test Item Value Reference Range Comments PREG UR (test code = PGU) NEGATIVE NEGATIVE URINE MONOCLONAL *WW*2018-04-22 09:31:00 Test Item Value Reference Range Comments PREG UR (test code = PGU) NEGATIVE NEGATIVE
--- OUTSIDE RECORDS SUMMARY | 2019-09-06 00:36 | XMS REPORT | Encounter Summary ---
:1980 Author Reason for Visit Follow Up Visit Instructions 1. Cervicovaginal cytology: Low grade squamous intraepithelial lesion Discussion Note: None recorded.Patient educational handouts: No information available. Plan of Care Reminders Provider Appointments Colposcopy Mayra Rogers 03/24/2019 MD Carter 9:00AM Lab None recorded. Referral None recorded. Procedures None recorded. Surgeries None recorded. Imaging None recorded. Medications Name Start Date pantoprazole 40 mg tablet,delayed release Medications Administered None recorded. Vitals Weight Blood Pressure 143 lbs 104/69 mm[Hg] Results Lab Results None recorded. Allergies Code Code System Name Reaction Severity Status Onset Sulfa Hives Mild to Active (Sulfonamid Moderate e Antibiotics ) Problems No Known Problems Procedures Date Name Performed by 05/19/2018 Removal of Fallopian Tube Information no t available Vaccine List Vaccine Type influenza, injectable, quadrivalent 06/18/2018 Social History Tobacco Smoking Status Never Smoker Past Encounters 03/01/2019 Cervicovaginal Cytology: Low Grade Squam ous Intraepithelial Lesion Heather Machado MD: [address], [place] [address], Ph. 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 Pt has had a colpo which resulted in AKUA 2 adn 3, LEEP done and was AKUA 1 benign ECC. Pap done in 07/2018 4 mons after leep was LGSIL and one month later pap was wnl. Last month 01/2019 pap is LGSIL and HPV+. PT referred to our office for futher evaluation. PT reports having some vaginal bleeding after intercourse despite having had and ablation tx in 05/2018 with resulting ammenorrhea. PT does not smoke and family h/o ovarian cancer -mother age 50"S.--LRReview of Systems: ROS as noted in the HPI Review of Systems None recorded. Physical Exam Notes: deferred
--- OUTSIDE RECORDS SUMMARY | 2019-09-06 00:36 | XMS REPORT | Encounter Summary ---
:1980 Author Reason for Visit colposcopy/biopsy Instructions 1. Cervicovaginal cytology: Low grade squamous intraepithelial lesion biopsy, cervical test, urine colposcopy with biopsy and endocervical curettage (PROC) 2. Low grade squamous intraepith elial lesion on cervical Papanicolaou smear 3. Vaginitis chucky sp DNA, vaginal bacterial vaginosis panel, vaginal CT + NG + TV, DNA, urine/s wab Discussion Note Colposcopy with biopsies done. Dis cussed today's findings and my impression. Reviewed general info about dysplasia, H PV, and treatment options. Plan: Patient educational handouts: No information available. Plan of Care Reminders Provider Appointments Follow up Austen dorothy Rogers 04/09/2019 MD Carter 11:30AM Lab Biopsy, [facility] Cervical 03/24/2019 Medical Center ( Lab) In-Hous e Results Test, Urine 03/24/2019 [facility] Diagnostic DNA, Vaginal 03/24/2019 Laboratories ( lab) Bacterial Medical Diagnostic Vaginosis Panel, Vaginal 03/24/2019 Laborat ories ([facility]) CT + NG + TV, Med ical Diagnostic DNA, Urine/swab 03/24/2019 Laboratories ([facility]) Referral None recorded. Procedures Colposcopy with Biopsy and 03/24/2019 Endocervical Curettage (PROC) Surgeries None recorded. Imaging None recorded. Medications Name Start Date pantoprazole 40 mg tablet,delayed release Medications Administered None recorded. Vitals Weight Blood Pressure 140 lbs 113/79 mm[Hg] Results Lab Results Date Name Specimen Result Interpretation Description Value Range Status Address negative I n-House Test, Urine Test Resul ts: For Internal U se Only Allergies Code Code System Name Reaction Severity Status Onset Sulfa Hives Mild to Active (Sulfonamid Moderate e Antibiotics ) Problems Name Status Onset Date Source Low Grade Squamous Intraepithelial Lesion on Active 10/2018 Cervical Papanicolaou Smear Procedures Date Name Performed by 05/19/2018 Removal of Fallopian Tube Information no t available Vaccine List Vaccine Type influenza, injectable, quadrivalent 06/18/2018 Social History Tobacco Smoking Status Never Smoker Past Encounters 03/24/2019 Cervicovaginal Cytology: Low Grade Squam ous Intraepithelial Lesion; Low Grade Squamous Intraepithelial Lesion on Cervical Papanicolaou Smear; Vaginitis Heather Machado MD: [address], [place] [address], Ph. [phone] 03/01/2019 Cervicovaginal Cytology: Low Grade Squam ous Intraepithelial Lesion Heather Machado MD: [address], [place] [address], Ph. [phone] History of Present Illness Note: 38 yo [...] Review of Systems None recorded. Physical Exam None recorded.
[2019-09-06] MEDS ORDERED: MORPHINE 2 MG/ML SYR ONE (01:29)
[2019-09-06] MEDS ORDERED: ONDANSETRON 4 MG/2 ML VIAL ONE (01:29)
[2019-09-06 01:40] LABS: Absolute Lymphocytes (CBC) 3.8 K/uL (0.7-4.9); Basophils % 0.5 % (0-1.3); Hematocrit 37.9 % (36.0-45.0); Lymphocytes % 47.5 % (15.3-44.8); MPV 8.7 fL (7.6-11.3); RBC Red Blood Cell Count 3.95 M/uL (3.86-4.86)
[2019-09-06 01:55] LABS: Albumin 3.9 g/dL (3.4-5.0); Bilirubin Direct 0.1 mg/dL (0-0.2); Bilirubin Total 0.4 mg/dL (0.2-1.0); Protein, Total 7.2 g/dL (6.4-8.2)
--- NOTE | 2019-09-06 02:52 | ER ---
Nurse's Notes [facility] Name: Yoli Duffy Age: 39 yrs Sex: Female : 1980 Arrival Date: 09/06/2019 Time: 00:36 Bed 5 Private MD: Diagnosis: Generalized abdominal pain;Low back pain;Urinary tract infection, site not specified Presentation: 09/05 00:44 Chief complaint: Patient states: she has been having lower back pain x 48 hours today bb she started having abdominal pain denies dysuria, fever, vomiting does have nausea. Coronavirus screen: Proceed with normal triage. Ebola Screen: No symptoms or risks identified at this time. Initial Sepsis Screen: Does the patient meet any 2 criteria? No. Patient's initial sepsis screen is negative. Does the patient have a suspected source of infection? No. Patient's initial sepsis screen is negative. Risk Assessment: Do you want to hurt yourself or someone else? Patient reports no desire to harm self or others. Onset of symptoms was September 04, 2019. 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 - Social history:: Smoking status: Patient denies any tobacco usage or history of. Patient uses alcohol, occasionally. Screenin:35 Abuse screen: Denies threats or abuse. Denies injuries from another. Nutritional mg2 screening: No deficits noted. Tuberculosis screening: No symptoms or risk factors identified. Fall Risk IV access (20 points). Assessment: 01:34 General: Appears in no apparent distress. comfortable, Behavior is calm, cooperative. mg2 Pain: Complains of pain in right lower quadrant Pain does not radiate. Pain currently is 5 out of 10 on a pain scale. Quality of pain is described as aching. Neuro: Level of Consciousness is awake, alert, obeys commands, Oriented to person, place, time, situation. Cardiovascular: Capillary refill < 3 seconds Patient's skin is warm and dry. Respiratory: Airway is patent Respiratory effort is even, unlabored, Respiratory pattern is regular, symmetrical. GI: Reports lower abdominal pain. : No signs and/or symptoms were reported regarding the genitourinary system. EENT: Derm: Skin is intact, is healthy with good turgor, Skin is pink, warm \T\ dry. normal. Musculoskeletal: Circulation, motion, and sensation intact. Capillary refill < 3 seconds. Vital Signs: 00:44 BP 107 / 82; Pulse 74; Resp 16 S; Temp 99(TE); Pulse Ox 100% on R/A; Weight 61.23 kg bb (R); Height 5 ft. 3 in. (160.02 cm) (R); Pain 8/10; 03:08 BP 98 / 65; Pulse 80; Resp 18; Temp 98; Pulse Ox 100% on R/A; mg2 00:44 Body Mass Index 23.91 (61.23 kg, 160.02 cm) bb ED Course: 00:36 Patient arrived in ED. mr 00:38 Clive Ruth PA is PHCP. m 00:38 Bud Lopez MD is Attending Physician. [facility] 00:49 Triage completed. bb 00:52 Arm band placed on Patient placed in an exam room, on a stretcher, on pulse oximetry. bb 01:21 Tony Washington, RN is Primary Nurse. mg2 01:30 Lipase Sent. ds4 01:30 Hepatic Function Sent. ds4 01:30 Creatinine for Radiology Sent. ds4 01:30 CBC with Diff Sent. ds4 01:31 Basic Metabolic Panel Sent. ds4 01:36 Patient has correct armband on for positive identification. Pulse ox on. NIBP on. Door mg2 closed. Warm blanket given. 01:36 No provider procedures requiring assistance completed. Inserted saline lock: 20 gauge mg2 in right forearm, using aseptic technique. Blood collected. 02:22 CT Abd/Pelvis - IV Contrast Only In Process Unspecified. EDMS 03:09 IV discontinued, intact, bleeding controlled, No redness/swelling at site. Pressure mg2 dressing applied. Administered Medications: 01:34 Drug: morphine 2 mg Route: IVP; Site: right forearm; mg2 03:01 Follow up: Response: No adverse reaction mg2 01:34 Drug: Zofran (Ondansetron) 4 mg Route: IVP; Site: right forearm; mg2 03:01 Follow up: Response: No adverse reaction; Marked relief of symptoms mg2 Outcome: 02:52 Discharge ordered by MD. corrigan 03:09 Discharged to home ambulatory. mg2 03:09 Condition: stable 03:09 Discharge instructions given to patient, Instructed on discharge instructions, follow up and referral plans. medication usage, Demonstrated understanding of instructions, follow-up care, medications, Prescriptions given X 3. 03:09 Patient left the ED. mg2 Signatures: Dispatcher [employer] EDMS Clive Ruth PA PA jmm Rivera, Mary mr Matilde Levine, RN RN Solomon Simms ds4 Tony Washington RN RN mg2
--- NOTE | 2019-09-06 02:52 | EDPHYS ---
Physician Documentation [facility] Name: Yoli Duffy Age: 39 yrs Sex: Female : 1980 Arrival Date: 09/06/2019 Time: 00:36 Bed 5 Private MD: ED Physician Bud Lopez HPI: 09/05 00:53 This 39 yrs old Female presents to ER via Ambulatory with complaints of Back jmm Pain. 00:53 The patient presents with pain that is acute, with no known mechanism of injury. Onset: jmm The symptoms/episode began/occurred gradually, 2 day(s) ago. The pain does not radiate. Associated signs and symptoms: Pertinent negatives: fever, vomiting. This is a 39 year old female with a history of dysautonomia, PUD that presents to the ED with complaints of right sided back pain beginning approx 2 days ago with pain beginning in the abdomen today. Denies vomiting or diarrhea but has had decreased appetite. . 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 - Social history:: Smoking status: Patient denies any tobacco usage or history of. Patient uses alcohol, occasionally. ROS: 00:53 Constitutional: Negative for fever, chills, and weight loss, Cardiovascular: Negative jmm for chest pain, palpitations, and edema, Respiratory: Negative for shortness of breath, cough, wheezing, and pleuritic chest pain. 00:53 Abdomen/GI: Positive for abdominal pain. 00:53 Back: Positive for pain at rest, pain with movement. 00:53 All other systems are negative. Exam: 00:53 Constitutional: This is a well developed, well nourished patient who is awake, alert, jmm and in no acute distress. Head/Face: atraumatic. Eyes: EOMI, no conjunctival erythema appreciated ENT: Moist Mucus Membranes Neck: Trachea midline, Supple Chest/axilla: Normal chest wall appearance and motion. Cardiovascular: Regular rate and rhythm. No edema appreciated 00:53 Abdomen/GI: Inspection: abdomen appears normal, Bowel sounds: normal, Palpation: soft, moderate abdominal tenderness, in the right lower quadrant. 00:53 Back: CVA tenderness, that is moderate, is noted on the right. 00:53 Musculoskeletal/extremity: ROM: intact in all extremities. 00:53 Neuro: Orientation: is normal, Mentation: is normal, Memory: is normal. 00:53 Psych: Behavior/mood is pleasant, cooperative. Vital Signs: 00:44 BP 107 / 82; Pulse 74; Resp 16 S; Temp 99(TE); Pulse Ox 100% on R/A; Weight 61.23 kg bb (R); Height 5 ft. 3 in. (160.02 cm) (R); Pain 8/10; 03:08 BP 98 / 65; Pulse 80; Resp 18; Temp 98; Pulse Ox 100% on R/A; mg2 00:44 Body Mass Index 23.91 (61.23 kg, 160.02 cm) bb MDM: 00:41 Patient medically screened. [facility] 02:50 Data reviewed: vital signs, nurses notes. Counseling: I had a detailed discussion with meenu the patient and/or guardian regarding: the historical points, exam findings, and any diagnostic results supporting the discharge/admit diagnosis, lab results, radiology results, the need for outpatient follow up, to return to the emergency department if symptoms worsen or persist or if there are any questions or concerns that arise at home. ED course: Patient is alert and non toxic in appearance in the ED. Patient advised to follow up with pcp and otherwise given strict return precautions. Patient understood and agrees with the plan of care. . 09/05 00:47 Order name: Basic Metabolic Panel; Complete Time: :58 [facility] 09/05 00:47 Order name: CBC with Diff [facility] 09/05 00:47 Order name: Creatinine for Radiology; Complete Time: :58 [facility] 09/05 00:47 Order name: Hepatic Function; Complete Time: :58 [facility] 09/05 00:47 Order name: Lipase; Complete Time: :58 [facility] 09/05 02:19 Order name: Urine Dipstick--Ancillary (enter results) ar5 09/05 00:47 Order name: IV Saline Lock; Complete Time: 01:21 [facility] 09/05 00:47 Order name: Labs collected and sent; Complete Time: 01:30 [facility] 09/05 00:47 Order name: CT Abd/Pelvis - IV Contrast Only [facility] 09/05 01:20 Order name: Urine Dipstick-Ancillary (obtain specimen); Complete Time: 01:30 [facility] 09/05 01:20 Order name: Urine Test (obtain specimen); Complete Time: 01:30 [facility] 09/05 02:19 Order name: Urine --Ancillary (enter results) ar5 Administered Medications: 01:34 Drug: morphine 2 mg Route: IVP; Site: right forearm; mg2 03:01 Follow up: Response: No adverse reaction mg2 01:34 Drug: Zofran (Ondansetron) 4 mg Route: IVP; Site: right forearm; mg2 03:01 Follow up: Response: No adverse reaction; Marked relief of symptoms mg2 Disposition: 09/06/19 02:52 Discharged to Home. Impression: Generalized abdominal pain, Low back pain, Urinary tract infection, site not specified. - Condition is Stable. - Discharge Instructions: Abdominal Pain, Adult, Back Pain, Adult, Urinary Tract Infection, Adult. - Prescriptions for Cephalexin 500 mg Oral Capsule - take 1 capsule by ORAL route every 12 hours for 10 days; 20 capsule. orphenadrine citrate 100 mg Oral Tablet Sustained Release - take 1 tablet by ORAL route 2 times per day As needed; 20 tablet. Protonix 40 mg Oral Tablet - take 1 tablet by ORAL route once daily; 30 tablet. - Medication Reconciliation Form, Thank You Letter, Antibiotic Education, Prescription Opioid Use form. - Follow up: Private Physician; When: 2 - 3 days; Reason: Recheck today's complaints, Continuance of care, Re-evaluation by your physician. Addendum: 09/07/2019 10:07 Co-signature as Attending Physician, Bud Lopez MD I agree with the assessment and t w4 plan of care. Signatures: Dispatcher [employer] EDMS Clive Ruth PA PA jmm Ballard, Brenda, RN RN bb Bud Lopez MD MD tw4 Tony Washington RN RN mg2 Corrections: (The following items were deleted from the chart) 09/05 03:09 02:52 09/06/2019 02:52 Discharged to Home. Impression: Generalized abdominal pain; Low mg2 back pain; Urinary tract infection, site not specified. Condition is Stable. Forms are Medication Reconciliation Form, Thank You Letter, Antibiotic Education, Prescription Opioid Use. Follow up: Private Physician; When: 2 - 3 days; Reason: Recheck today's complaints, Continuance of care, Re-evaluation by your physician. meenu
[2019-09-06 03:34] LABS: Urine Blood NEGATIVE (NEG); Urine Glucose NEGATIVE (NEG); Urine Protein NEGATIVE (NEG); Urine Specific Gravity 1.025 (1.005-1.030)
[2019-09-06 03:57] VITALS: O2SAT 100
[2019-09-06 03:59] VITALS: BP 98/65; TEMP 98
--- NOTE | 2019-09-06 09:40 | RAD REPORT ---
EXAM DESCRIPTION: CT - Abdomen Pelvis W Contrast - 09/06/2019 4:16 am CLINICAL HISTORY: 39-year-old female with right lower quadrant abdominal pain TECHNIQUE: Axial CT imaging of the abdomen and pelvis was performed following the administration of intravenous contrast.. Sagittal and coronal reconstructed images were then performed. The CT study is perform ed according to ALARA (as low as reasonably achievable) or ALARA/IMAGE GENTLY, with automatic adjustm ent of mA and/or kV according to patient size. Performed on: 09/06/2019 2:17 AM. COMPARISON: Prior CT abdomen and pelvis with contrast performed on 12/11/2018 FINDINGS: Lung bases: The lung bases are clear. Liver: The liver is normal in size and configuration. No focal hepatic abnormalities are identified. Liver attenuation is within normal limits. Spleen: The spleen is normal is size, configuration and attenuation. Gallbladder and bile duct: The gallbladder is surgically absent. There is no biliary ductal dilatat ion. Pancreas: The pancreas is grossly normal in size and configuration. Adrenal Glands: The adrenal glands are normal in size and configuration. Kidneys: The kidneys are normal in size and configuration. There is no evidence of hydronephrosis. Th ere is no evidence of nephrolithiasis. No definite solid or cystic renal mass lesions are identified. Stomach: The stomach is grossly normal. There is no definite hiatal hernia. Bowel: The bowel gas pattern is non specific and non obstructive. There is moderate fecal residue sca ttered throughout the colon. Appendix: The appendix is normal. Free air: There is no evidence of free air. Free fluid: There is no evidence of free fluid. Vasculature: The aorta is normal in caliber and contour. The inferior vena cava is grossly unremarkab le. Lymphadenopathy: No pathologic lymphadenopathy is identified. Bladder: The bladder is well distended and smooth in contour. Reproductive: The uterus is grossly within normal limits. Bones: No acute osseous abnormalities are identified. Soft tissues: No focal soft tissue abnormalities are identified. IMPRESSION: 1. No evidence of acute intra-abdominal or intrapelvic pathology. There is no CT evidence of acute ap pendicitis or urinary tract obstruction. 2. Status post remote cholecystectomy. 3. There is moderate fecal residue scattered throughout the colon. Electronically signed by: Kaela Seth DO 09/06/2019 2:39 AM CDT Due to temporary technical issues with the PACS/Fluency reporting system, reports are being signed by the in house radiologist as a courtesy to ensure prompt reporting. The interpreting radiologist is f ully responsible for the content of the report.
[2019-09-07 10:01] LABS: Platelet Estimate ADEQ
[2019-09-07 10:02] LABS: Blood Morphology Comment NOT SEEN (NOT SEEN)
== END 2019-09-06 03:09 | disposition home or self-care (01) ==
LOC: ER 00:32
DX: N39.0 Urinary tract infection, site not specified (principal); R10.84 Generalized abdominal pain; I95.9 Hypotension, unspecified; F41.9 Anxiety disorder, unspecified; Z98.82 Breast implant status; Z88.2 Allergy status to sulfonamides
CPT/HCPCS: 36415; 74177; 80048; 80076; 81003; 81025; 83690; 85025; J2270; J2405; Q9967

== ENCOUNTER 2020-12-16 17:12 | Emergency (ER) | payer SELFPAY ==
--- OUTSIDE RECORDS SUMMARY | 2020-12-16 17:16 | XMS REPORT | Continuity of Care Document ---
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 5905-5) Eosinophils/100 leukocytes in 0.9 % Blood by Automated count (test code = 713-8) Basophils/100 leukocytes in 0.3 % Blood by Automated count (test code = 706-2) [facility] CenterHepatitis B virus surface Ag [Presence] in [id number] 00:00:00 Test Item Value Reference Range Interpretation Comments Hepatitis B virus surface Ag non-reactive non-reactive [Presence] in Serum or Plasma by Immunoassay (test code = 5196-1) [facility] CenterThyrotropin [Units/volume] in Serum or Zlugsa3630-24-27 00:00:00 Test Item Value Reference Range Interpretation Comments Thyrotropin [Units/volume] in 0.81 mIU/L Serum or Plasma (test code = 3016-3) [facility] CenterRPR (monitor) w/refl titer (refl) 2019-01-12 00:00:00 Test Item Value Reference Range Interpretation Comments Reagin Ab [Presence] in Serum by non-reactive non-reactive RPR (test code = 13862-5) [facility] CenterUrinalysis macro (dipstick) panel - [id number] 14:53:00 Test Item Value Reference Range Interpretation Comments Leukocytes (test code = Leukocytes) neg Nitrite (test code = Nitrite) neg Urobilinogen (test code = Urobilinogen) 2.0 Protein (test code = Protein) neg pH (test code = pH) 7.0 Blood (test code = Blood) neg Specific Foster (test code = Specific 1.025 Foster) Ketone (test code = Ketone) neg Bilirubin (test code = Bilirubin) neg Glucose (test code = Glucose) neg [facility] CenterBacterial vaginosis DNA and score panel - Vaginal fluid by ANNE with probe [id number] 00:00:00 Test Item Value Reference Range Interpretation Comments gardnerella vaginalis by positive A real-time PCR (test code = gardnerella vaginalis by real-time PCR) atopobium vaginae by real-time positive A PCR (test code = atopobium vaginae by real-time PCR) bacterial vaginosis associated negative bacterium 2 (bvab2) by real-time PCR (test code = bacterial vaginosis associated bacterium 2 (bvab2) by real-time PCR) megasphaera species (type 1 and negative type 2) by real-time PCR (test code = megasphaera species (type 1 and type 2) by real-time PCR) lactobacillus (bv & av panel) by see comment real time PCR (test code = lactobacillus (bv & av panel) by real time PCR) [facility] CenterCT + NG + TV, DNA, urine/swab 2018-12-20 00:00:00 Test Item Value Reference Range Interpretation Comments chlamydia trachomatis by real-time negative PCR (reflex to azithromycin resistance by pyrosequencing) (test code = chlamydia trachomatis by real-time PCR (reflex to azithromycin resistance by pyrosequencing)) trichomonas vaginalis by real-time negative PCR (reflex to metronidazole resistance) (test code = trichomonas vaginalis by real-time PCR (reflex to metronidazole resistance)) neisseria gonorrhoeae by real-time negative PCR (reflex to antibiotic resistance by molecular analysis) (test code = neisseria gonorrhoeae by real-time PCR (reflex to antibiotic resistance by molecular analysis)) [facility] CenterCandida sp DNA [Presence] in Vaginal fluid by ANNE with probe [id number] 00:00:00 Test Item Value Reference Range Interpretation Comments chucky albicans by real-time PCR positive A (test code = chucky albicans by real-time PCR) chucky tropicalis by real-time PCR negative (test code = chucky tropicalis by real-time PCR) chucky parapsilosis by real-time negative PCR (test code = chucky parapsilosis by real-time PCR) chucky glabrata by real-time PCR negative (test code = chucky glabrata by real-time PCR) [facility] CenterCOMPREHENSIVE METABOLIC THAYER *WW* 2018-06-04 06:51:00 Test Item Value Reference Range Interpretation Comments GLUCOSE (test code = 06D) 100 mg/dL 75-100 SODIUM (test code = 01A) 138 mmol/L 136-145 POTASSIUM (test code = 01B) 3.9 mmol/L 3.6-5.1 CHLORIDE (test code = 04A) 109 mmol/L 98-107 H CO2 (test code = 02A) 24 mmol/L 22-32 ANION GAP (test code = ANG) 9.1 mmol/L BUN (test code = 05D) 7 mg/dL 7-18 CREATININE (test code = 03E) 0.7 mg/dL 0.4-1.1 BUN/CREA (test code = BCR) 10 12-20 L CALCIUM (test code = 09D) 8.4 mg/dL 8.3-9.5 BILI TOTAL (test code = 11A) 1.0 mg/dL 0.2-1.0 PROTEIN (test code = 07D) 6.5 g/dL 6.4-8.2 ALBUMIN (test code = 08D) 3.5 g/dL 3.5-4.8 GLOBULIN (test code = GLB) 3.0 g/dL 1.5-3.8 ALB/GLOB (test code = AGRR) 1.2 1.0-2.6 ALK PHOS (test code = 35A) 38 IU/L 42-121 L AST (test code = 30A) 18 IU/L <=42 ALT (test code = 31A) 17 IU/L <=78 CBC (INCLUDES AUTOMATED DIFFERENTIAL)*[id number] 06:18:00 Test Item Value Reference Range Interpretation Comments WBC (test code = WBC) 7.9 10\\S\\3/uL 4.5-11.0 RBC (test code = RBC) 3.57 10\\S\\6/uL 4.30-5.70 L HGB (test code = HBG) 11.8 g/dL 12.0-15.5 L HCT (test code = HCT) 33.8 % 35.0-44.0 L MCV (test code = MCV) 94.7 fL 81.0-99.0 MCH (test code = MCH) 33.1 pg 27.0-31.0 H MCHC (test code = MCHC) 34.9 g/dL 32.0-36.0 RDW (test code = RDW) 11.7 % 11.5-14.5 PLT (test code = PLT) 141 10\\S\\3/uL 130-400 MPV (test code = MPV) 9.7 fL 9.4-12.4 NEUTROP # (test code = NE#) 5.5 10\\S\\3/uL 1.6-8.0 LYMPH # (test code = LY#) 1.8 10\\S\\3/uL 1.1-3.5 MONOCYTE # (test code = MO#) 0.5 10\\S\\3/uL 0.0-1.1 EOSINOPH # (test code = EO#) 0.0 10\\S\\3/uL 0.0-0.7 BASOPHIL # (test code = BA#) 0.0 10\\S\\3/uL 0.0-0.3 IG # (test code = IG#) 0.03 10\\S\\3/uL 0.00-0.06 NRBC # (test code = NRBC#) 0.00 10\\S\\3/uL 0.00-0.01 NEUTROPH % (test code = NE%) [...] NO NO RBC MORPH (test code = NORMAL WRBCMOR) CT ABDOMEN AND PELVIS WITH AND WITHOUT CONTRAST*WW*2018-06-03 17:32:47LOCATION: [id number]: CT ABDOMEN AND PELVIS WITH AND WITHOUT CONTRAST*WW*HISTORY: [id number]: Pain , postoperative TECHNIQUE: Axial imaging of [...] can be further evaluated with pelvicultrasound.COMPREHENSIVE METABOLIC [id number] 17:08:00 Test Item Value Reference Range Interpretation Comments GLUCOSE (test code = 06D) 144 mg/dL 75-100 H SODIUM (test code = 01A) 136 mmol/L 136-145 POTASSIUM (test code = 01B) 3.1 mmol/L 3.6-5.1 L CHLORIDE (test code = 04A) 104 mmol/L [...] (test code = 11A) 1.6 mg/dL 0.2-1.0 H PROTEIN (test code = 07D) 7.0 g/dL 6.4-8.2 ALBUMIN (test code = 08D) 3.8 g/dL 3.5-4.8 GLOBULIN (test code = GLB) 3.2 g/dL 1.5-3.8 ALB/GLOB (test code = AGRR) 1.2 1.0-2.6 ALK PHOS (test code = 35A) 43 IU/L 42-121 AST (test code = 30A) 23 IU/L <=42 ALT (test code = 31A) 21 IU/L <=78 CBC (INCLUDES AUTOMATED DIFFERENTIAL)*[id number] 16:53:00 Test Item Value Reference Range Interpretation Comments WBC (test code = WBC) 8.6 10\\S\\3/uL 4.5-11.0 RBC (test code = RBC) 3.74 10\\S\\6/uL 4.30-5.70 L HGB (test code = HBG) 12.4 g/dL 12.0-15.5 HCT (test code = HCT) 34.8 % 35.0-44.0 L MCV (test code = MCV) 93.0 fL 81.0-99.0 MCH (test code = MCH) 33.2 pg 27.0-31.0 H MCHC (test code = MCHC) 35.6 g/dL 32.0-36.0 RDW (test code = RDW) 11.6 % 11.5-14.5 PLT (test code = PLT) 145 10\\S\\3/uL 130-400 MPV (test code = MPV) 9.6 fL 9.4-12.4 NEUTROP # (test code = NE#) 7.5 10\\S\\3/uL 1.6-8.0 LYMPH # (test code = LY#) 1.0 10\\S\\3/uL 1.1-3.5 L MONOCYTE # (test code = MO#) 0.1 10\\S\\3/uL 0.0-1.1 EOSINOPH # (test code = EO#) 0.0 10\\S\\3/uL 0.0-0.7 BASOPHIL # (test code = BA#) 0.0 10\\S\\3/uL 0.0-0.3 IG # (test code = IG#) 0.03 10\\S\\3/uL 0.00-0.06 NRBC # (test code = NRBC#) 0.00 10\\S\\3/uL 0.00-0.01 NEUTROPH % (test code = NE%) 86.8 % 35.0-73.0 H LYMPH % (test code = LY%) 11.9 % 20.0-55.0 L MONO % (test code = MO%) 0.9 % 2.5-10.0 L EOSINOPH % (test code = EO%) 0.0 % 0.0-5.0 BASOPHIL % (test code = BA%) 0.1 % 0.0-2.0 IG % (test code = IG%) 0.3 % 0.0-0.8 NRBC% (test code = NRBC%) 0.0 % 0.0-0.2 MANDIFF (test code = WMDIFF) NO NO RBC MORPH (test code = NORMAL WRBCMOR) URINE MONOCLONAL *WW*2018-06-03 09:58:00 Test Item Value Reference Range Interpretation Comments PREG UR (test code = PGU) NEGATIVE NEGATIVE URINE MONOCLONAL *WW*2018-04-22 09:31:00 Test Item Value Reference Range Interpretation Comments PREG UR (test code = PGU) NEGATIVE NEGATIVE EVAHLAVRQW0450-80-02 09:56:00 Test Item Value Reference Range Interpretation Comments PT (test code = PT) 13.9 s 12.0-14.7 [facility] PRYPN2159-80-23 09:56:003.0[facility] PANEL 2017-06-02 09:56:00 Test Item Value Reference Range Interpretation Comments B/C Ratio (test code = B/C Ratio) 14 1 6-25 [facility] [id number] 09:56:00 Test Item Value Reference Range Interpretation Comments A/G Ratio (test code = A/G Ratio) 1.0 1 0.7-1.6 [facility] QYWZY6026-70-36 09:56:0015.1[facility]annCHEM PANEL 2017-06-02 09:56:07497Gfegzlmp HermannCHEM HMTLH7727-12-39 09:56:000.4[facility]annCHEM VVBHI8543-51-15 09:56:008.3[facility]annCHEM WINHT6886-53-97 09:56:005.9[facility]annCHE[facility] YSRBV4642-12-50 09:56:0026[facility]annCHE[facility] ZWRYH0567-64-46 09:56:0026[facility]annCHE[facility] LMNUC7255-87-08 09:56:0039 [facility]annCHE[facility] WAVVB0019-59-86 09:56:0025[facility]annCHEM PANEL 2017-06-02 09:56:002.9[facility]annCHE[facility] GXMYK6247-77-98 09:56:0011[facility]annCHE[facility] YWFFI9883-56-77 09:56:000.77[facility]annCHE[facility] ZKOFD2667-78-34 09:56:004.1[facility]annCHEM WUSVK8534-36-18 09:56:93896Sygbppyd HermannCHEM YXMSA4895-68-74 09:56:17814Hriicztw HermannCHEM YXTAX6723-07-19 09:56:34172 [facility]annCHE[facility] MAUXA4970-86-23 09:56:001.9[facility]annCHEM PANEL 2017-06-02 09:56:003.1[facility] WggnggfYPTMDJTFOZ5177-03-75 09:56:008.5[facility] VamgwocBHKZJJXCPE2493-93-20 09:56:15417Qpktjyte FwzynbfUFCYDFUGMD6170-13-66 09:56:00 Test Item Value Reference Range Interpretation Comments MCH (test code = MCH) 33.4 pg 27.0-31.0 [facility] WpjslipTKRLYJCHAC2686-76-33 09:56:0094.9[facility]annHEMATOLOGY 2017-06-02 09:56:0012.5[facility] HqrtlhpZGHVXTCVFC3925-34-74 09:56:0035.2[facility] YbifcekQQWAZFIVUQ6552-95-60 09:56:004.6[facility] CkwpyadYLZSLMVEWR0927-03-28 09:56:0032.3[facility] IjycazeXVYJHPTYIH9245-57-53 09:56:0011.4[facility] GCFHEEWMPB1195-00-96 09:56:003.41[facility] NjeuuisIHIAGAVMYD1301-40-82 09:56:00 0.3[facility] YyplnqjTXNFOWQFAL2362-98-80 09:56:001.9[facility]annHEMATOLOGY 2017-06-02 09:56:002.2[facility] PopryjxRXCWYHQQDC9196-92-47 09:56:000.1[facility] PwinaysDKLHNEWALQ9082-66-31 09:56:000.3[facility] BsctmbbTMGXXRULAT1405-82-71 09:56:0041.7[facility] KrvlggfRYUBXOXRCV8543-96-43 09:56:0048.9[facility] GPHONZIYIY2641-12-02 09:56:007.2[facility] ZtlhdreQSPUEIUHGB2283-39-61 09:56:001.9 [facility] OhgcwitVIHILDXXTZ4035-93-89 09:56:00 Test Item Value Reference Range Interpretation Comments INR (test code = INR) 1.07 1 0.85-1.17 [facility] JpawwglISQVFDBLGA9217-77-94 09:56:00 Test Item Value Reference Range Interpretation Comments PTT (test code = PTT) 34.5 s 22.9-35.8 [facility] AnrgckgBDHUCCZOXRLP9956-82-70 08:35:009.7[facility] HermannELECTROLYTES 2017-06-01 08:35:59090Qkvnkjql ByrpomcYILRGDNJYCKV6269-04-30 08:35:0025[facility] PjrpnrrBXJMCGVGFXGD7717-00-83 08:35:28607Inwprmvn CacarznCFLUHGAPAFHA3440-28-72 08:35:008.2[facility] IkydnctEIDRIWCENRWK6802-55-47 08:35:003.7[facility] CFWXVLVZRGGX5713-16-40 08:35:0011[facility] YuyxwbcKFVLVJDZMSZL4370-56-84 08:35:00 91[facility] IwzwezqLTGTQGKPDBHE1143-49-16 08:35:53421Meandbzo HermannELECTROLYTES 2017-06-01 08:35:000.76[facility] ErmakoiGNQPWLWKNS2573-77-02 08:35:0094.6[facility] ZajzwtsZORUTYSYDC1999-93-90 08:35:00 Test Item Value Reference Range Interpretation Comments MCH (test code = MCH) 33.1 pg 27.0-31.0 [facility] RujirhsBDELCLMELH8950-20-04 08:35:0035.0[facility]annHEMATOLOGY 2017-06-01 08:35:0012.4[facility] QpweoshPXBWRQTWPP3056-93-15 08:35:008.2[facility] BeyikurAQRBDGQBRJ0137-88-86 08:35:0033.8[facility] JnyefvdWNWVUAINQQ0969-03-07 08:35:68640Gflpvijo FqaknmfCGUQAMZUPV3403-01-33 08:35:006.7[facility] PLMGOCJYNI0434-64-50 08:35:0011.8[facility] CbrpepqJBVJUMIFIP9204-03-12 08:35:00 3.58[facility] BhbmfdgBCZMDYOJGI8747-16-01 08:35:000.1[facility]annHEMATOLOGY 2017-06-01 08:35:000.1[facility] BzaekkxLVFFAVIONM3403-78-23 08:35:000.5[facility] GjdzdhfDOQPMUEKKE3400-36-24 08:35:003.8[facility] ZtqflxoQJDFJCZACY0314-39-78 08:35:001.0[facility] TvcqjryFGABEJPVIS6447-70-98 08:35:007.3[facility] WVOANNSXXV2467-72-11 08:35:0033.1[facility] PpnigfeWSDNYJJFMU4075-01-67 08:35:00 2.2[facility] BqnljicGOPDKHZRWC1593-33-00 08:35:001.2[facility]annHEMATOLOGY 2017-06-01 08:35:0057.4[facility] MlljqvbLKJKZLWGDZZE0072-36-97 06:24:0022[facility] NyjwqwbBNTNSSDCICDN8786-72-55 06:24:42646Nehtrnxf FbedkpaXPMPFGETJTRG8656-78-58 06:24:00See Note 1(09/02/16 1:24 AM)[facility] XagdqgqFXRDOUXANCJW6877-52-74 06:24:0020.0[facility] EhchepiZSSXEINMZINS4585-65-41 06:24:001.25[facility] AXHWEXTMNJIB0540-01-63 06:24:000.9[facility] OkqyfdkGLHDSTHANAQB4949-70-76 06:24:0010[facility] TqavdlnVJHNLIXVFAXH0269-48-07 06:24:26074Cmlfmrvu Jesse HFJBOEMJFMTR7553-40-71 06:24:40362Stvnftje EbqcoyaDABRKSHGTEFB7118-79-24 06:24:003.6[facility] HjzjjtvCQOWXAZGWG2051-50-79 05:57:000.1[facility] YORUPDRXHS1044-93-05 05:57:0040.3[facility] TceckquCXYUQMKJLN0744-22-44 05:57:00 3.0[facility] HopydkmVFYJKURXRB3034-94-40 05:57:0049.7[facility]annHEMATOLOGY 2016-09-02 05:57:002.1[facility] YzogpgrFNRWKSBQIU4921-21-23 05:57:003.7[facility] MlmvvjsYJWXHIPJZM0459-26-56 05:57:000.7[facility] AzayajwAJXRIGNPMN7799-39-22 05:57:000.2[facility] NgjqlryDJPMGGJAZE6227-87-98 05:57:000.5[facility] XVJXINWCNW7499-02-52 05:57:007.2[facility] UhtsokfSNJVNOFCGN5561-35-08 05:57:00 3.94[facility] KaxadfpDKBZGAMSYX2471-39-95 05:57:0094.7[facility]annHEMATOLOGY 2016-09-02 05:57:0013.3[facility] TjnehvkLEIHHTWTMG8823-82-80 05:57:0037.3[facility] StjkkbcQMLUNOCWGW9251-87-54 05:57:008.2[facility] YekivtiQTQNBCUKKD3323-99-04 05:57:05875Skqzxwjw GqhnegjTPLGAXOYSL1542-79-38 05:57:00 Test Item Value Reference Range Interpretation Comments MCH (test code = MCH) 33.7 pg 27.0-31.0 [facility] TnatvmcFTWNJQHANH1039-14-62 05:57:0035.5[facility]annHEMATOLOGY 2016-09-02 05:57:0012.6[facility] TytuxqiPIWBWAMZID4904-16-76 05:57:007.4[facility]annDRUG IZWRPT2336-40-63 05:37:00Negative *NA*(09/02/16 12:37 AM)[facility]annDR[facility] EJDBYU8124-72-80 05:37:00See Note (09/02/16 12:37 AM)[facility] DR[facility] FFMAMD7003-91-79 05:37:00Negative *NA*(09/02/16 12:37 AM)[facility] YXELKW6924-77-35 05:37:00Positive *ABN*(09/02/16 12:37 AM)[facility] DR[facility] XPOMCZ7151-97-21 05:37:00Negative *NA*(09/02/16 12:37 AM)[facility] DR[facility] NLLDNQ6341-49-14 05:37:00Negative *NA*(09/02/16 12:37 AM)[facility] DZJOII8334-02-81 05:37:00Negative *NA*(09/02/16 12:37 AM)[facility] YUVBPH6486-90-77 05:37:00Negative *NA*(09/02/16 12:37 AM)[facility] URINE AND WUSHU7807-82-76 05:37:00Small *ABN*(09/02/16 12:37 AM)[facility] URINE AND PRRTN4172-56-93 05:37:00Negative (09/02/16 12:37 AM)[facility] URINE AND YCENX3206-38-63 05:37:000.2[facility]ann[facility] AND FMCAS0114-70-97 05:37:00Negative (09/02/16 12:37 AM)[facility] AND QXLQF9145-74-62 05:37:00 Test Item Value Reference Range Interpretation Comments UA pH (test code = UA pH) 6.0 1 5.0-8.0 [facility] WOMKA9667-06-71 05:37:00 Test Item Value Reference Range Interpretation Comments UA Spec Grav (test code = UA Spec 1.025 1 Grav) [facility] CDIDE8746-80-34 05:37:00Trace *ABN*(09/02/16 12:37 AM) [facility] ZFYTC3907-99-29 05:37:00Negative *NA*(09/02/16 12:37 AM)[facility] FWSOH6147-18-87 05:37:00Yellow *NA*(09/02/16 12:37 AM)[facility] MDNCE4054-45-36 05:37:00Slight Cloudy (09/02/16 12:37 AM)[facility]ann[facility] MJYO2437-44-45 05:37:00Negative (09/02/16 12:37 AM)[facility]
--- NOTE | 2020-12-16 18:19 | ER ---
Nurse's Notes [facility] Name: Yoli Duffy Age: 40 yrs Sex: Female : 1980 Arrival Date: 12/16/2020 Time: 17:15 Bed Waiting Private MD: Diagnosis: Presentation: 12/16 17:46 Chief complaint: Patient states: upper mid abd pain since yesterday , thinks she is iw constipated has been taking suppositories. 17:50 Coronavirus screen: At this time, the client does not indicate any symptoms associated iw with coronavirus-19. Ebola Screen: Patient negative for fever greater than or equal to 101.5 degrees Fahrenheit, and additional compatible Ebola Virus Disease symptoms Patient denies exposure to infectious person. Patient denies travel to an Ebola-affected area in the 21 days before illness onset. No symptoms or risks identified at this time. Initial Sepsis Screen: Does the patient meet any 2 criteria? No. Patient's initial sepsis screen is negative. Does the patient have a suspected source of infection? No. Patient's initial sepsis screen is negative. Risk Assessment: Do you want to hurt yourself or someone else?. 17:50 Acuity: MARIA GUADALUPE 3 iw 17:50 Method Of Arrival: Ambulatory iw Historical: - Allergies: 17:50 Sulfa (Sulfonamide Antibiotics); iw - PMHx: 17:50 Anxiety; dystautonomia; ectopic pregnancies x 2; hypotension; Ulcers; iw ED Course: 17:15 Patient arrived in ED. mr 17:50 Triage completed. iw Administered Medications: No medications were administered Outcome: 18:19 Patient left the ED. iw Signatures: Lizzie English Irene, RN RN iw
== END 2020-12-16 18:19 | disposition left against medical advice (07) ==
LOC: ER 17:12
DX: Z53.21 Procedure and treatment not carried out due to patient leaving prior to being seen by health care provider (principal)
CPT/HCPCS: 99281

== ENCOUNTER 2022-06-05 10:56 | Day surgery (SDC) | payer OTHER ==
--- NOTE | 2022-06-03 15:46 | RAD REPORT ---
EXAM DESCRIPTION: RAD - Chest Pa And Lat (2 Views) - 06/03/2022 3:36 pm CLINICAL HISTORY: pre op pending rotator cuff repair Chest pain. COMPARISON: Chest Single View dated 08/31/2016 FINDINGS: The lungs are clear. The heart is normal in size. No displaced fractures. IMPRESSION: No acute or concerning finding suspected.
[2022-06-03 16:36] LABS: Absolute Lymphocytes (CBC) 3.1 K/uL (0.7-4.9); Hematocrit 40.4 % (36.0-45.0); Lymphocytes % 46.5 % (15.3-44.8); MCV 96.2 fL (80-100); MPV 8.6 fL (7.6-11.3)
[2022-06-03 16:41] LABS: Protime INR 0.96
[2022-06-03 16:49] LABS: Potassium 4.1 mmol/L (3.5-5.1)
[2022-06-05] MEDS ORDERED: CEFAZOLIN SODIUM 1 GM/VIAL ONE (11:04)
[2022-06-05] MEDS ORDERED: Ringers Lactate 1,000 ML IV ONE (11:04)
[2022-06-05] MEDS ORDERED: EPINEPHRINE/PF 1 MG/ML AMP ONE ×2 (11:25→11:45)
[2022-06-05] MEDS ORDERED: MIDAZOLAM HCL 2 MG/2 ML INJ ONE ×2 (11:37→13:36)
[2022-06-05] MEDS ORDERED: dexAMETHasone 4 MG/ML VIAL ONE (11:38)
[2022-06-05] MEDS ORDERED: ROPLVACAINE HCL 40 ML ONE (11:38)
[2022-06-05] MEDS ORDERED: FENTANYL CITR 100 MCG/2 ML ONE (11:38)
[2022-06-05] MEDS ORDERED: LIDOCAINE 2% MPF 5 ML VIAL ONE ×2 (11:39→12:42)
[2022-06-05] MEDS ORDERED: ROCURONIUM 50 MG/5 ML VIAL IV ONE (12:42)
[2022-06-05] MEDS ORDERED: propofoL 200 MG/20 ML VIAL IV ONE (12:42)
[2022-06-05] MEDS ORDERED: ONDANSETRON 4 MG/2 ML VIAL ONE (12:45)
[2022-06-05] MEDS ORDERED: NS 0.9% VIAL 10 ML ONE (14:34)
--- NOTE | 2022-06-05 15:03 | P.BOP ---
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
[2022-06-05] MEDS ORDERED: NEOSTIGMINE 1 MG/ML -5 ML ONE (15:07)
[2022-06-05] MEDS ORDERED: GLYCOPYRROLATE 0.2 MG/ML SYR ONE (15:07)
[2022-06-05] MEDS: MEPERIDINE HCL 25 MG/ML SYR ONE ×2 (15:32→15:38)
[2022-06-05] MEDS ORDERED: dexAMETHasone 10 MG/ML VIAL ONE (15:32)
[2022-06-05] MEDS ORDERED: PROMETHAZINE INJ 25 MG/ML AMP ONE (15:53)
[2022-06-05] MEDS ORDERED: METOCLOPRAMIDE 10 MG/2mL INJ ONE (16:02)
--- NOTE | 2022-06-05 16:03 | RAD REPORT ---
EXAM DESCRIPTION: RAD - Shoulder 1 View - 06/05/2022 3:40 pm CLINICAL HISTORY: shoulder surgery FINDINGS: Frontal view of the shoulder was obtained. No fracture or dislocation is seen. Postsurgical changes involve the shoulder
[2022-06-05 16:27] VITALS: BP 108/60; TEMP 97.3; O2SAT 98
== END 2022-06-05 18:03 | disposition home or self-care (01) ==
LOC: OR 10:56
PROVIDERS: ATTEND Orthopaedic Surgery Sports Medicine
PROC: 0RNJ4ZZ Release Right Shoulder Joint, Percutaneous Endoscopic Approach (ICD-10-PCS; principal; 2022-06-05 13:15)
DX: M75.121 Complete rotator cuff tear or rupture of right shoulder, not specified as traumatic (principal); M75.41 Impingement syndrome of right shoulder
CPT/HCPCS: 85025; 80048; 36415; 85610; 85730; 71046; 73020; 29827; 29826; J2704; J1100 ×2; J0171 ×2; J2765; J2550; J2001 ×2; J2250 ×2; J3010; J2175; J2795; A4216; J2710; J7120; J2405; J0690